=== PATIENT | female | born 1945 | race Caucasian/White ===

== ENCOUNTER → 2016-11-29 | Outpatient (CLI) | payer MEDICARE, BC ==
[~2016-11-29] MED LIST: CEFTIN500 MG PO; GLUCOPHAGE XR500 M1 PO; GLUCOPHAGE500 MG/TAB PO; LEVAQUIN 750MG750 M1 PO; LORTAB 5/500 501 TAB PO; NO HOME MEDICATIONS; NORCO 325 MG-51 TAB PO
== END ==
LOC: MC.RAD 11-24 09:40
DX: Z12.31 Encounter for screening mammogram for malignant neoplasm of breast (principal)

== ENCOUNTER → 2017-11-17 | Outpatient (CLI) | payer MEDICARE, BC | LOC: COL.RAD 08:42 | DX: S46.312A Strain of muscle, fascia and tendon of triceps, left arm, initial encounter (principal) ==

== ENCOUNTER 2017-11-27 13:51 | Outpatient (RCR) | payer MEDICARE, BC | END 2017-12-07 11:18 | disposition home or self-care (01) | LOC: WSPT 13:51 | DX: S46.002A Unspecified injury of muscle(s) and tendon(s) of the rotator cuff of left shoulder, initial encounter (principal) | CPT/HCPCS: G8984-GP; G8985-GP; G8986-GP ==

== ENCOUNTER → 2017-12-04 | Outpatient (CLI) | payer MEDICARE, BC | LOC: MC.RAD 08:50 | DX: Z12.31 Encounter for screening mammogram for malignant neoplasm of breast (principal) ==

== ENCOUNTER 2018-03-01 23:27 | Emergency (ER) | payer MEDICARE, BC ==
[~2018-03-01] VITALS: Ht 160 cm; Wt 86.4 kg
[2018-03-01 23:32] VITALS: BP 143/76; TEMP 97
[2018-03-02 01:26] VITALS: PULSE 82
[2018-03-02] MEDS ORDERED: DITROPAN 5MG TAB5 MG PO (01:28)
[2018-03-02] MEDS ORDERED: ERGOCALCIFER50000 IU PO (01:28)
[2018-03-02] MEDS ORDERED: REQUIP0.25 MG PO (01:28)
[2018-03-02] MEDS ORDERED: TRIMPEX100 MG PO (01:28)
[2018-03-02] MEDS ORDERED: HALCION0.25 MG PO (01:28)
[2018-03-02] MEDS ORDERED: PRAVACHOL10 MG PO (01:28)
[2018-03-02] MEDS ORDERED: CELEXA10 MG PO (01:29)
== END 2018-03-02 01:31 | disposition home or self-care (01) ==
LOC: COL.ER 23:27
DX: S09.90XA Unspecified injury of head, initial encounter (principal); S01.01XA Laceration without foreign body of scalp, initial encounter; W06.XXXA Fall from bed, initial encounter

== ENCOUNTER 2018-03-08 12:24 | Emergency (ER) | payer MEDICARE, BC ==
[~2018-03-08 12:24] MED LIST changes: +CELEXA10 MG PO; +DITROPAN 5MG TAB5 MG PO; +ERGOCALCIFER50000 IU PO; +HALCION0.25 MG PO; +PRAVACHOL10 MG PO; +REQUIP0.25 MG PO; +TRIMPEX100 MG PO
[2018-03-08 12:26] VITALS: BP 116/66; PULSE 95; TEMP 98.1
== END 2018-03-08 12:31 | disposition home or self-care (01) ==
LOC: COL.ER 12:24
DX: S01.01XD Laceration without foreign body of scalp, subsequent encounter (principal); X58.XXXD Exposure to other specified factors, subsequent encounter

== ENCOUNTER 2018-06-12 12:26 | Emergency (ER) | payer MEDICARE, BC ==
[~2018-06-12] VITALS: Ht 160 cm; Wt 86.4 kg
[2018-06-12 12:29] VITALS: BP 127/80; TEMP 99
[2018-06-12] MEDS ORDERED: GLUCOPHAGE XR500 M1 PO (12:40)
[2018-06-12 12:46] LABS: BASO % 0.4 % (0.0-2.0); EOS # 0.1 (0.0-0.7); EOS % 1.1 % (0-4.0); GRAN # 6.6 (1.4-6.5); GRAN % 67.6 % (42.2-75.2); HEMOGLOBIN 12.8 g/dl (12.5-16.0); LYMPH # 1.9 (1.2-3.4); LYMPH % 19.5 % (20.0-51.0); MEAN CELL VOLUME 94 fl (80.0-100.0); MEAN CORPUSCULAR HEMOGLOBIN 33 pg (27.0-31.0); MEAN CORPUSCULAR HGB CONC 35 g/dl (33.0-37.0); MEAN PLATELET VOLUME 8.7 fl (7.4-10.4); MONO # 1.1 (0.1-0.6); PLATELET COUNT 317 K/mm3 (130-400); RED BLOOD COUNT 3.88 M/mm3 (4.10-5.30); REDCELL DISTRIBUTION WIDTH-CV 12.9 % (11.5-14.5)
[2018-06-12 12:47] LABS: HEMATOCRIT 36.5 % (37.0-47.0)
[2018-06-12 13:00] LABS: BILIRUBIN,TOTAL 0.5 mg/dL (0.0-1.0); CALCIUM 8.9 mg/dL (8.4-10.2); CREATININE, serum 0.86 mg/dL (0.52-1.25); POTASSIUM 4.5 mmol/L (3.4-5.0); TOTAL PROTEIN 7.3 gm/dL (6.4-8.2)
[2018-06-12 13:16] LABS: COLLECTION METHOD CLEAN CATCH
[2018-06-12 13:29] LABS: MUCOUS Present /lpf; PH 6 (5-8); SQUAMOUS EPITHELIAL 0-2 /hpf; URINE APPEARANCE Hazy; URINE BACTERIA Many /hpf; URINE BILIRUBIN Negative (NEGATIVE); URINE BLOOD Negative (NEGATIVE); URINE COLOR Yellow; URINE GLUCOSE Negative (NEGATIVE); URINE KETONE Negative (NEGATIVE); URINE LEUKOCYTE ESTERASE 1+ (NEGATIVE); URINE NITRATE Negative (NEGATIVE); URINE PROTEIN(semi-quant) Negative (NEGATIVE); URINE UROBILINOGEN Negative (NEGATIVE)
[2018-06-12 13:40] VITALS: PULSE 82
[2018-06-13] MEDS ORDERED: CEFTIN500 MG PO (18:18)
== END 2018-06-12 13:49 | disposition home or self-care (01) ==
LOC: COL.ER 12:26
PROVIDERS: Family Medicine
DX: S70.02XA Contusion of left hip, initial encounter (principal); E11.9 Type 2 diabetes mellitus without complications; Z90.49 Acquired absence of other specified parts of digestive tract; Z79.84 Long term (current) use of oral hypoglycemic drugs; W18.39XA Other fall on same level, initial encounter

== ENCOUNTER → 2019-01-28 | Outpatient (CLI) | payer MEDICARE, BC | LOC: MC.RAD 12-17 10:30 | DX: Z12.31 Encounter for screening mammogram for malignant neoplasm of breast (principal) ==

== ENCOUNTER 2019-08-29 14:32 | Inpatient (IN) | payer MEDICARE, BC ==
[~2019-08-29] VITALS: Ht 160 cm; Wt 89.9 kg
[2019-10-16] VITALS (15 sets, daily range): BP systolic 11–122; BP diastolic 27–88; PULSE 63–93; TEMP 98.2–98.7
--- NOTE | 2019-10-16 06:31 | NUR ---
PATIENT UP TO ROOM 329 AT 0520. DRESSED IN CLEAN GOWN. 20 G IV STARTED TO R HAND. LR INFUSING AT 100 ML/HR. R KNEE MARKED AND SCRUBBED WITH CHLOREHEXIDINE. JEREMÍAS HOSE TO NON OPERATIVE EXTREMITY. GLASSES AND UPPER PARTIAL DENTURES REMOVED AND WITH PATIENTS SON. CONSENT SIGNED. PATIENT DOWN TO PREOP BY JENNIFER VIA BED.
--- NOTE | 2019-10-16 09:40 | NUR ---
PATIENT BACK IN ROOM 329 POST OP RIGHT KNEE. RLE ELEVATED WITH PILLOWS. RTK DRESSING IS CD&I WITH ACEWRAP DRESSING CD&I AND CRYOCUFF INPLACE. POSITIVE +1 PEDAL PULSES TO BLE. TEDS & SCD'S TO BLE. NO LOPEZ. PATIENT DENIES NEED TO VOID AT THIS TIME. IV FLUIDS INFUSING VIA PUMP INTO RIGHT HAND IV. NO C/O N/V. LIQUIDS AT BEDSIDE. BS 116. HEAD TO TOE ASSESSMENT WNL. VSS. NO C/O PAIN. PATIENT IS NOT MOVING BLE YET AFTER SPINAL. NOTED FEELING/SENSATION AT T10. NO OTHER NEEDSA THIS TIME. ORIENTED TO ROOM. CALL LIGHT IN REACH. SON AT BEDSIDE.
--- NOTE | 2019-10-16 11:41 | NUR ---
RUTH met with the patient to discuss discharge plan. The patient lives alone in [place]. She states that one of her sons', Nathan (ph#[phone]), also lives here in town. She reports independence with ADLs and has a cane and walker. The patient's PCP is Dr. Megan Pressley and she receives her medications at [facility]. She reports no difficulties obtaining her meds. The patient does not have advanced directives in EMR, but states that she does have them completed. She states that her DPOA-HC is her son's Jayson. The patient reports that due to living alone, she is hoping to go to post-acute rehab upon discharge. RUTH presented and explained the Patient Choice Form to the patient and provided her with Medicare.gov's list of nursing homes in the [place] area. The patient chose 1) [facility] 2) [facility]. Patient Choice Form signed by the patient and she was provided a copy. RUTH contacted and faxed a referral to both facilities. SW awaiting their screens.
--- NOTE | 2019-10-16 12:45 | NUR ---
PATIENT C/O PAIN IN RLE RATED AT 4-5. PATIENT IS NOW MOVING BLE. GAVE PRN ROXICODONE, TWO TABS WITH LUNCH.
--- NOTE | 2019-10-16 14:32 | NUR ---
Silvia, at [facility], reports that they are able to accept the patient for a skilled stay. Timbo, at [facility], reports that they should be able to accept; but will need more progress notes, once available. SW to update the patient and will continue to follow.
--- NOTE | 2019-10-16 16:20 | NUR ---
PATIENT FOUND ON COMMODE DURING ROUTINE VITALS, NOT MAKING ANY SENSE. PATIENT IS PALE AND QUICKLY VEGALS OUT. PATIENT IS NOT RESPONDING TO HER NAME AND SLUMPED FORWARD ON COMMODE. NURSE CAUGHT PATIENT AND IS SUPPORTING WEIGHT. CALLED CHARGE FOR ASSISTANCE, AND THEN CAT CALL.
--- NOTE | 2019-10-16 16:21 | NUR ---
PATIENT PLACED IN [place], O2 AT 2L APPLIES PER NC. IV BOLUS INFUSING.
--- NOTE | 2019-10-16 16:23 | NUR ---
CAT TEAM AT BEDSIDE.
--- NOTE | 2019-10-16 16:30 | NUR ---
PATIENT RESTING UP IN BED. REPORTS SHE FEELS FINE. PATIENT ALSO STATED HE HAS ISSUES WITH LOW B/P AT TIMES. FLUID BOLUS GIVEN PER HOSPITALIST. SEE ORDERS.
--- NOTE | 2019-10-16 16:32 | NUR ---
CALLED YARIEL LEIVA AND UPDATED ON PT STATUS. NEW ORDERS RECIEVED SEE COMPUTER.
--- NOTE | 2019-10-16 16:40 | NUR ---
RT AT BEDSIDE TO OBTAIN EKG
[2019-10-16 18:14] LABS: BASO # 0.1 (0.0-0.2); BASO % 0.4 % (0.0-2.0); EOS # 0.2 (0.0-0.7); EOS % 1.2 % (0-4.0); GRAN # 11.2 (1.4-6.5); GRAN % 78.4 % (42.2-75.2); HEMOGLOBIN 10.9 g/dl (12.5-16.0); LYMPH # 1.5 (1.2-3.4); LYMPH % 10.2 % (20.0-51.0); MEAN CELL VOLUME 95 fl (80.0-100.0); MEAN CORPUSCULAR HEMOGLOBIN 33 pg (27.0-31.0); MEAN CORPUSCULAR HGB CONC 34 g/dl (33.0-37.0); MEAN PLATELET VOLUME 9.5 fl (7.4-10.4); MONO # 1.3 (0.1-0.6); MONO % 8.9 % (1.7-9.3); PLATELET COUNT 276 K/mm3 (130-400); RED BLOOD COUNT 3.35 M/mm3 (4.10-5.30); REDCELL DISTRIBUTION WIDTH-CV 13.2 % (11.5-14.5)
[2019-10-16 18:24] LABS: ALANINE AMINOTRANSFERASE 22 U/L (9-52); ALBUMIN 3.2 gm/dL (3.5-5.0); ALKALINE PHOSPHATASE 54 U/L (50-136); ANION GAP 6 mmol/L (7-16); AST,SGOT 27 U/L (15-37); BLOOD UREA NITROGEN 12 mg/dL (7-17); CALCIUM 7.5 mg/dL (8.4-10.2); CARBON DIOXIDE 23 mmol/L (22-30); CHLORIDE 100 mmol/L (98-107); CREATININE, serum 0.75 (0.52-1.25); GLUCOSE 116 mg/dL (74-106); POTASSIUM 4.6 mmol/L (3.4-5.0); SODIUM 130 mmol/L (137-145)
[2019-10-16 18:27] LABS: HEMATOCRIT 31.9 % (37.0-47.0)
[2019-10-16 18:38] LABS: TROPONIN-I < 0.012 ng/mL (0.000-0.035)
[2019-10-16 18:45] LABS: BILIRUBIN UNCONJUGATED 0.3 mg/dL (0.0-1.1); BILIRUBIN,TOTAL 0.3 mg/dL (0.0-1.0)
--- NOTE | 2019-10-16 20:00 | NUR ---
Pt. laiying in bed with family at bedside. Pt. is A&OX3, assessment complete. IV to rt. hand patent, IV fluids infusing per orders. Pt. reports pain at a 6 on pain scale, gave pain meds per orders. Pt. also reports feeling the need to urinate without success. Will bladder scan pt. Pt. denies further needs, call light within reach.
--- NOTE | 2019-10-16 21:00 | NUR ---
Pt. bladder scanned at this time. Pt. has only 70 mls in bladder. Pt. reports that she has and some incontinent dribbling. Pt. refused having brief changed at this time. Pt. denies further needs.
[2019-10-17] VITALS (8 sets, daily range): BP systolic 81–144; BP diastolic 49–85; PULSE 62–103; TEMP 97.7–99.2
--- NOTE | 2019-10-17 04:50 | NUR ---
Pt. assisted to [facility] by ANAMARIA Mcgill. Pt. began to feel faint and passed out. RN called out for assisted. This nurse, ANAMARIA Hensley and TIM Lo entered room to find pt. breathing but unresponsived. Pt. sternal chest rubbed and aroused but remained grougy. Vitals taken and were stable. Pt. then awoke and became alert and oriented to the situation. Pt. then assisted back to bed with gait belt, walker and 4 assist. Pt. was able to transfer without passing out at that time. Pt. repositioned for comfort. Pt. denies needs, will monitor.
--- NOTE | 2019-10-17 06:50 | NUR ---
awake sitting up in bed ready for breakfast, bedside shift report received from ANAMARIA Aquino
--- NOTE | 2019-10-17 08:00 | NUR ---
entered room and she is asking to get up to bedside commode, orthostatic VS completed, she started to become dizzy while standing and continued to say she didn't feel good, after contiuing to not feel well and BP 81/49 sat back on bed and laid back with head flat, after lying for a few minutes she started to feel better, was incontinent of urine and care provided and then placed on bed vegas to try and have bowel movement
[2019-10-17 08:03] LABS: BASO # 0.1 (0.0-0.2); BASO % 0.3 % (0.0-2.0); EOS % 0.1 % (0-4.0); GRAN # 16.1 (1.4-6.5); GRAN % 88.3 % (42.2-75.2); HEMOGLOBIN 11.8 g/dl (12.5-16.0); LYMPH % 5.6 % (20.0-51.0); MEAN CELL VOLUME 96 fl (80.0-100.0); MEAN CORPUSCULAR HEMOGLOBIN 32 pg (27.0-31.0); MEAN CORPUSCULAR HGB CONC 34 g/dl (33.0-37.0); MEAN PLATELET VOLUME 9.4 fl (7.4-10.4); MONO % 5.2 % (1.7-9.3); PLATELET COUNT 292 K/mm3 (130-400); RED BLOOD COUNT 3.64 M/mm3 (4.10-5.30); REDCELL DISTRIBUTION WIDTH-CV 13.1 % (11.5-14.5)
[2019-10-17 08:13] LABS: CALCIUM 7.9 mg/dL (8.4-10.2); CREATININE, serum 0.72 (0.52-1.25); POTASSIUM 4.9 mmol/L (3.4-5.0)
--- NOTE | 2019-10-17 08:40 | NUR ---
was unable to have bowel movement but passing flatus, full assessment completed, see interventions for further info, denies needs at this time
--- NOTE | 2019-10-17 08:44 | NUR ---
Initial visit; Patient thanked A&P Technician for stopping though declined spiritual care at this time.
--- NOTE | 2019-10-17 09:00 | NUR ---
Dr Alvarez informed of patients orthostatic VS
--- NOTE | 2019-10-17 09:15 | NUR ---
physical therapy was in and worked with bernardo
--- NOTE | 2019-10-17 09:40 | NUR ---
occupational therapy in to visit with her about adaptive equipment
--- NOTE | 2019-10-17 10:18 | NUR ---
resting in bed, just states she feels very sleepy, encouraged to rest
--- NOTE | 2019-10-17 11:50 | NUR ---
resting in bed having lunch, is asking to try and get up, informed her we will do that with therapy in about an hour, verbalizes understanding
--- NOTE | 2019-10-17 13:07 | NUR ---
physical therapy in to work with patient, ambulating out to porter with therapy and denies dizziness at this time
--- NOTE | 2019-10-17 13:13 | NUR ---
SW contacted and faxed updates to [facility] [place] [facility]. SW to continue to follow.
--- NOTE | 2019-10-17 13:40 | NUR ---
ambulated back to room and into bathroom and voided qs, then out of bathroom and into recliner to rest
--- NOTE | 2019-10-17 14:30 | NUR ---
is requesting to go back to bed, explained to her she only has been up a little while this afternoon and it would be best to stay up for a while, verbalizes understanding
--- NOTE | 2019-10-17 15:20 | NUR ---
assisted up to bathroom and then back to bed, tolerated being up wihtout dizziness
--- NOTE | 2019-10-17 16:15 | NUR ---
resting in bed talking on cell phone
--- NOTE | 2019-10-17 16:49 | NUR ---
now c/o pain and medicated with tramadol 50mg, given crackers to have with med
--- NOTE | 2019-10-17 17:30 | NUR ---
sitting up in bed eating supper
[2019-10-17] MEDS ORDERED: ASPI325T6 PO (21:04)
[2019-10-17] MEDS ORDERED: ROXICODONE 55 MG/TAB PO (21:05)
[2019-10-17] MEDS ORDERED: TYLENOL 500MG500 MG PO (21:05)
--- NOTE | 2019-10-18 03:13 | NUR ---
Patient has rested well throughout the night. Up to commode several times this shift with one assist from staff. IVF continue. PRN Tramadol given for pain. Effective. Patient denies any further needs. Will continue to monitor.
[2019-10-18 06:14] VITALS: BP 130/52; PULSE 87; TEMP 98.2
[2019-10-18 07:09] LABS: BASO % 0.3 % (0.0-2.0); EOS # 0.5 (0.0-0.7); EOS % 3.9 % (0-4.0); GRAN # 10.4 (1.4-6.5); GRAN % 76.4 % (42.2-75.2); HEMOGLOBIN 11.1 g/dl (12.5-16.0); LYMPH # 1.3 (1.2-3.4); LYMPH % 9.8 % (20.0-51.0); MEAN CELL VOLUME 97 fl (80.0-100.0); MEAN CORPUSCULAR HEMOGLOBIN 33 pg (27.0-31.0); MEAN CORPUSCULAR HGB CONC 34 g/dl (33.0-37.0); MEAN PLATELET VOLUME 9.7 fl (7.4-10.4); MONO # 1.2 (0.1-0.6); PLATELET COUNT 250 K/mm3 (130-400); RED BLOOD COUNT 3.41 M/mm3 (4.10-5.30); REDCELL DISTRIBUTION WIDTH-CV 13.5 % (11.5-14.5)
[2019-10-18 07:10] LABS: HEMATOCRIT 32.9 % (37.0-47.0)
[2019-10-18 07:16] LABS: CALCIUM 7.8 mg/dL (8.4-10.2); CREATININE, serum 0.61 (0.52-1.25); POTASSIUM 4.3 mmol/L (3.4-5.0)
--- NOTE | 2019-10-18 07:24 | NUR ---
REPORT FROM MARY CONRAD.
[2019-10-18 07:56] VITALS: BP 130/48; PULSE 104; TEMP 98
--- NOTE | 2019-10-18 08:58 | NUR ---
PT SITTING UP IN BED EATING BREAKFAST. DENIES PAIN. OUT TO LARSEN WITH THEARPY. AMBULATING WITH STEADY GAIT.
[2019-10-18 09:15] VITALS: BP 130/48
--- NOTE | 2019-10-18 09:46 | NUR ---
DRESSING CHANGE COMPLETE. INCISION WELL APPROXIMATED AND CDI. AQUACEL PLACED OVER INCISION. PT TOLERATED WELL.
[2019-10-18 11:43] VITALS: BP 117/59; PULSE 88; TEMP 97.9
--- NOTE | 2019-10-18 11:47 | NUR ---
The patient is to tentatively discharge tomorrow, 10/19. RUTH met with the patient to review discharge plan. The patient is in agreeance with a discharge tomorrow and to go to her first preference, [facility], for a skilled stay. RUTH presented and explained the IM form to the patient. The patient verbalized understanding, signed, and she was provided a copy. RUTH notified Silvia at [facility] and faxed over updates. RUTH to notify Timbo at [facility] and will continue to follow.
[2019-10-18 15:23] VITALS: BP 124/71; PULSE 97; TEMP 98.8
--- NOTE | 2019-10-18 18:48 | NUR ---
REPORT TO EDUARDO CONRAD.
[2019-10-18 20:27] VITALS: BP 119/54; PULSE 93; TEMP 98.4
[2019-10-19 00:48] VITALS: BP 125/60; PULSE 87; TEMP 97.4
--- NOTE | 2019-10-19 03:53 | NUR ---
Patient has rested well throughout the night. PRN pain medication given as needed. Patient states pain is well controlled. Patient able to get out of bed and transfer to the bathroom with stand-by assist. Utilizes walker. Does hygiene independently. Patient ambulates slow and steady. Denies any dizziness. Denies any further needs. Will continue to monitor.
[2019-10-19 04:17] VITALS: BP 104/65; PULSE 83; TEMP 97.3
[2019-10-19 08:26] VITALS: BP 116/58; PULSE 103; TEMP 99.2
[2019-10-19 10:24] VITALS: BP 116/58; PULSE 103; TEMP 99.2
--- NOTE | 2019-10-19 11:45 | NUR ---
No complaints. Ambulatory with walker and standby assist. Dismissed to [facility] per w/c brooks.
--- NOTE | 2019-10-19 13:15 | NUR ---
SW coordinated discharge with Patients nurse. SW faxed discharge documents to [facility].
== END 2019-10-19 11:45 | DRG 554 ==
LOC: JCC 10-16 05:25
PROVIDERS: Hospitalist; Physician Assistant; ADMIT Orthopaedic Surgery
DX: M17.11 Unilateral primary osteoarthritis, right knee (principal); E87.1 Hypo-osmolality and hyponatremia; I95.1 Orthostatic hypotension; E78.5 Hyperlipidemia, unspecified; D72.829 Elevated white blood cell count, unspecified; F41.9 Anxiety disorder, unspecified; E11.9 Type 2 diabetes mellitus without complications
CPT/HCPCS: 99222; 99231-AI; 99232-AI; A9284; C1713; C1776; J0690; J2250; J2370; J2704; J3370; J7030; J7120

== ENCOUNTER 2019-10-22 08:41 | Inpatient (IN) | payer MEDICARE, BC ==
[~2019-10-22] VITALS: Ht 160 cm; Wt 95.3 kg
[2019-10-22] VITALS (326 sets, daily range): BP systolic 100–147; BP diastolic 47–76; PULSE 95–116; TEMP 97.9–98.6; O2SAT 54–100
[~2019-10-22 08:41] MED LIST changes: +ASPI325T6 PO; +ROXICODONE 55 MG/TAB PO; +TYLENOL 500MG500 MG PO
[2019-10-22 09:21] LABS: MEAN CELL VOLUME 97 fl (80.0-100.0); MEAN CORPUSCULAR HGB CONC 33 g/dl (33.0-37.0); MEAN PLATELET VOLUME 10.1 fl (7.4-10.4); PLATELET COUNT 198 K/mm3 (130-400); RED BLOOD COUNT 2.04 M/mm3 (4.10-5.30)
[2019-10-22 09:25] LABS: HEMATOCRIT 19.8 % (37.0-47.0); HEMOGLOBIN 6.5 g/dl (12.5-16.0); MEAN CORPUSCULAR HEMOGLOBIN 32 pg (27.0-31.0)
[2019-10-22 09:32] LABS: ALANINE AMINOTRANSFERASE 21 U/L (9-52); ALBUMIN 2.4 gm/dL (3.5-5.0); ALKALINE PHOSPHATASE 48 U/L (50-136); ANION GAP 6 mmol/L (7-16); AST,SGOT 24 U/L (15-37); BILIRUBIN,TOTAL 0.3 mg/dL (0.0-1.0); BLOOD UREA NITROGEN 22 mg/dL (7-17); CALCIUM 7.5 mg/dL (8.4-10.2); CARBON DIOXIDE 25 mmol/L (22-30); CHLORIDE 102 mmol/L (98-107); GLUCOSE 142 mg/dL (74-106); POTASSIUM 5.4 mmol/L (3.4-5.0); SODIUM 132 mmol/L (137-145); TOTAL PROTEIN 5.1 gm/dL (6.4-8.2)
--- NOTE | 2019-10-22 09:33 | NUR ---
Initial visit; Patient requested visit and Spiritual Care upon arrival. Analytics Leader offered encouragement and prayer. Analytics Leader will follow up.
[2019-10-22 09:51] LABS: TROPONIN-I < 0.012 ng/mL (0.000-0.035)
[2019-10-22 10:06] LABS: BAND 9 % (0-10); BASOPHIL 1 % (0-2); EOSINOPHIL 1 % (0-4); LYMPHOCYTE 9 % (20.0-51.0); MYELOCYTE 1 % (0-0); NEUTROPHILS 74 % (42.0-75.2); PLATELET ESTIMATE NORMAL (NORMAL)
[2019-10-22 10:07] LABS: HYPOCHROMIA 1+
[2019-10-22 10:08] LABS: POLYCHROMASIA 1+; SCHISTOCYTES 1+; TARGET CELLS 1+
[2019-10-22 10:10] LABS: ANISOCYTOSIS 1+
[2019-10-22 10:20] LABS: INR 1.1 (0.8-3.0); PROTHROMBIN TIME 13.4 SECONDS (9.7-12.8)
[2019-10-22 10:23] LABS: PARTIAL THROMBOPLASTIN TIME 25.2 SECONDS (26.0-37.0)
--- NOTE | 2019-10-22 11:10 | NUR ---
PT ARRIVED FROM ED TO ICU 8 FOR GI BLEED. PT TRANSFERED TO BED. ICU MONITORS APPLIED. PT IS AXOX4. VSS. PT SHOWING SR ON TELE. PT TO RECEIVED 2 UNITS PRBC AND HAVE UPPER EGD. PT CONSENTED FOR EGD AND BLOOD. PT ORIENTED TO ROOM AND FLOOR. SON BEDSIDE. DR. BROWN NOTIFIED OF ARRIVAL. WILL CONTINUE TO MONITOR.
[2019-10-22] MEDS ORDERED: DULCOLAX S10 MG/SUPP RC (12:28)
[2019-10-22] MEDS ORDERED: DEBROX OT (12:29)
[2019-10-22] MEDS ORDERED: IMODIUM A-D2 MG PO (12:30)
[2019-10-22] MEDS ORDERED: GOOD NEIGH1200 MG/15 PO (12:31)
[2019-10-22] MEDS ORDERED: NAPROSYN500 MG PO (12:32)
[2019-10-22] MEDS ORDERED: ULTRAM 50MG TAB50 MG PO (12:33)
[2019-10-22] MEDS ORDERED: TYLENOL SU650 MG/SUP RC (12:35)
--- NOTE | 2019-10-22 15:59 | NUR ---
Refrigerator Assembler met with patient and patient's son Nathan (ph#[phone]) to discuss discharge planning. Patient had knee surgery last week and was discharged on Monday (10/19) to [facility]. Prior to stay at [facility], patient was living alone in her apartment in [place]. Patient owns a walker and cane although reports she doesn't use them much around the apartment. Patient states she uses her cane when walking in the community. Patient sees Dr. Megan Pressley for primary care and obtains medications from [facility]. Patient has Advance Directives located in chart. Patient states she plans to return to [facility] upon discharge for continued therapy. RUTH presented patient choice form and patient selected [facility] then provided signature. RUTH placed form in chart. RUTH faxed referral and contacted Silvia at [facility]. Patient expressed that she would like to speak with Tick Sewer. RUTH contacted Chaplain Payne who met with patient. SW to continue to follow.
[2019-10-22 19:32] LABS: HEMATOCRIT 25.8 % (37.0-47.0); HEMOGLOBIN 8.9 g/dl (12.5-16.0)
--- NOTE | 2019-10-22 21:00 | NUR ---
Patient assessed, vitals stable, medications given. Will continue to assess and monitor.
[2019-10-23] VITALS (336 sets, daily range): BP systolic 111–144; BP diastolic 54–79; PULSE 91–99; TEMP 97.9–98.8; O2SAT 63–100
--- NOTE | 2019-10-23 05:32 | NUR ---
Report given to ANAMARIA Dan.
[2019-10-23 06:16] LABS: MEAN CELL VOLUME 93 fl (80.0-100.0); MEAN CORPUSCULAR HGB CONC 33 g/dl (33.0-37.0); MEAN PLATELET VOLUME 9.7 fl (7.4-10.4); PLATELET COUNT 242 K/mm3 (130-400); RED BLOOD COUNT 2.59 M/mm3 (4.10-5.30); REDCELL DISTRIBUTION WIDTH-CV 14.5 % (11.5-14.5)
[2019-10-23 06:20] LABS: CALCIUM 8.1 mg/dL (8.4-10.2); CREATININE, serum 0.66 (0.52-1.25); POTASSIUM 4.7 mmol/L (3.4-5.0)
[2019-10-23 06:21] LABS: MEAN CORPUSCULAR HEMOGLOBIN 31 pg (27.0-31.0)
--- NOTE | 2019-10-23 07:50 | NUR ---
Telephone report recieved from Cherelle CONRAD
--- NOTE | 2019-10-23 08:15 | NUR ---
Pt ambulated with heavy 2-assist to commode to void. Pt tolerated bearing weight on right knee for 1-2 minutes before requiring to be seated d/t pain "it just gave out on me". After commode, pt moved to recliner, legs reclined and pillow placed under right knee for comfort. No complaints from pt at this time
[2019-10-23 08:31] LABS: PATHOLOGY DIFF REVIEW OK
[2019-10-23 09:08] LABS: BAND 2 % (0-10); EOSINOPHIL 1 % (0-4); LYMPHOCYTE 13 % (20.0-51.0); METAMYELOCYTE 3 % (0-0); MYELOCYTE 3 % (0-0); NEUTROPHILS 70 % (42.0-75.2); NUCLEATED RED BLOOD CELL 2 (0-6); PLATELET ESTIMATE NORMAL (NORMAL); TARGET CELLS 1+
[2019-10-23] MEDS ORDERED: ROXICODONE 55 MG/TAB PO (09:22)
--- NOTE | 2019-10-23 09:58 | NUR ---
SEE MERGE DOCUMENTATION FOR MEDICATION ADMINISTRATION TIMES AND INTRA/POST PROCEDURE SEDATION ASSESSMENTS.
--- NOTE | 2019-10-23 11:03 | NUR ---
Interdisciplinary rounds commencing at this time
--- NOTE | 2019-10-23 12:14 | NUR ---
0700: Pt off unit at Endo procedure 0756: Pt back in room from procedure, AAOx3, report recieved from MD Wilder. Pt's son at bedside. 0931: Pt off unit to IVC Filter Placement with CVL team. 1028: Telephone report received from CVL BriceRN 1050: Pt arrived back to unit, AAOx3, VSS, son at bedside, external catheter secured with appropriate suction mmHg, suctioning clear yellow urine. No complaints at this time.
--- NOTE | 2019-10-23 16:00 | NUR ---
Ice pack applied to right knee
--- NOTE | 2019-10-23 16:54 | NUR ---
Teletypewriter Installer faxed updates to [facility]. MIRANDA to continue to follow.
[2019-10-23 20:16] LABS: HEMATOCRIT 26.3 % (37.0-47.0); HEMOGLOBIN 8.8 g/dl (12.5-16.0)
[2019-10-24] VITALS (468 sets, daily range): BP systolic 112–135; BP diastolic 48–84; PULSE 88–107; TEMP 97.8–99.5; O2SAT 82–100
[2019-10-24 06:38] LABS: MEAN CELL VOLUME 95 fl (80.0-100.0); MEAN CORPUSCULAR HGB CONC 33 g/dl (33.0-37.0); MEAN PLATELET VOLUME 9.4 fl (7.4-10.4); PLATELET COUNT 276 K/mm3 (130-400); RED BLOOD COUNT 2.64 M/mm3 (4.10-5.30); REDCELL DISTRIBUTION WIDTH-CV 13.9 % (11.5-14.5)
[2019-10-24 06:40] LABS: HEMOGLOBIN 8.3 g/dl (12.5-16.0); MEAN CORPUSCULAR HEMOGLOBIN 31 pg (27.0-31.0)
[2019-10-24 06:48] LABS: CREATININE, serum 0.69 (0.52-1.25); POTASSIUM 4.3 mmol/L (3.4-5.0)
[2019-10-24 07:21] LABS: BAND 14 % (0-10); EOSINOPHIL 2 % (0-4); LYMPHOCYTE 20 % (20.0-51.0); METAMYELOCYTE 1 % (0-0); NEUTROPHILS 51 % (42.0-75.2); NUCLEATED RED BLOOD CELL 2 (0-6)
[2019-10-24 07:22] LABS: PLATELET ESTIMATE NORMAL (NORMAL)
--- NOTE | 2019-10-24 07:30 | NUR ---
Report received from Dana Gaona. Pt resting in chair. No complaints at this time.
--- NOTE | 2019-10-24 08:00 | NUR ---
Assessment completed. Pt states recliner is more comfortable than the bed. A/Ox3. VSS. States pain in right leg 03/15. Requested tylenol for pain medication. Legs elevated at this time. Ice pack applied to right knee for comfort. right leg swollen, brusing around knee and right calf. right knee dressing C/D/I. Right femoral dressing, gauze/tegderm, C/D/I. Discussed plan of care with possible advance in diet and right knee dressing change. Pt verbalized understanding. CAll light in reach.
--- NOTE | 2019-10-24 10:20 | NUR ---
Pt request to move back to bed. Pt transferred to bed x2 assist with gait belt. pt has steady gait. Pt incontinent of urine during transfer. Pericare provided once back in bed. New external catheter placed and suction on. Pt states she prefers external catheter rather than the briefs. right leg elevated on pillow. Call light in reach.
--- NOTE | 2019-10-24 11:00 | NUR ---
Right knee dressing changed per Dr Jefferson orders. Right knee incision well approximated, no redness or drainage. Bruising around knee and right calf area. 4x4 and tegaderm over incision. Pt tolerated well. Remains in bed. Call light in reach.
--- NOTE | 2019-10-24 14:45 | NUR ---
Phone report given to pascual grab jack worker.
--- NOTE | 2019-10-24 15:20 | NUR ---
Pt transferred to room 327 via wheelchair. Ale, ground support agent, in room and updated on pt status. Pt transferred to bed x2 assist with gait belt. Pt slightly unsteady. Tolerated transfer well. Pt repositioned in bed, call light in reach. Pt's son here to visit pt.
--- NOTE | 2019-10-24 15:30 | NUR ---
Patient to room 327 by wheelchair from [facility]. Patient A&Ox4. Denies pain and discomfort. Oriented patient to room and call light. Patient assisted to bed 2x assist. IV CDI. No further needs expressed from patient. Call light within reach
--- NOTE | 2019-10-24 17:56 | NUR ---
Patient sitting up in bed. A&Ox3, denies pain and discomfort. VSS. IV CDI. RT femoral site CDI. RT knee gauze and tegaderm CDI, swelling to RLE. No further needs expressed from patient. Call light within reach
--- NOTE | 2019-10-25 01:49 | NUR ---
Patient is alert and oriented. No reports of bloody stools this shift. Patient incision sites are covered with surgical dressing and are both clean, dry and intact. Patient has stated she has pain in her right knee. She states she is concerned about bruising to the inner aspect of her right ankle. Patient has required one does of PRN oxycodone this shift.
[2019-10-25 04:00] VITALS: BP 129/50; PULSE 89; TEMP 97.8
[2019-10-25 07:47] LABS: MEAN CELL VOLUME 96 fl (80.0-100.0); MEAN CORPUSCULAR HGB CONC 33 g/dl (33.0-37.0); MEAN PLATELET VOLUME 9.5 fl (7.4-10.4); PLATELET COUNT 339 K/mm3 (130-400); RED BLOOD COUNT 2.78 M/mm3 (4.10-5.30); REDCELL DISTRIBUTION WIDTH-CV 13.9 % (11.5-14.5)
[2019-10-25 07:50] LABS: HEMATOCRIT 26.7 % (37.0-47.0); HEMOGLOBIN 8.8 g/dl (12.5-16.0); MEAN CORPUSCULAR HEMOGLOBIN 32 pg (27.0-31.0)
[2019-10-25 07:51] LABS: CALCIUM 8.4 mg/dL (8.4-10.2); CREATININE, serum 0.61 (0.52-1.25); POTASSIUM 3.8 mmol/L (3.4-5.0)
[2019-10-25 08:00] VITALS: BP 112/56; PULSE 105; TEMP 97.3
[2019-10-25] MEDS ORDERED: REQUIP 0.5MG0.5 MG PO (09:08)
[2019-10-25] MEDS ORDERED: CARAFATE 1GM1 G PO (09:09)
[2019-10-25] MEDS ORDERED: REQUIP0.25 MG PO (09:09)
[2019-10-25] MEDS ORDERED: PROTONIX 40MG T40 MG PO (09:10)
[2019-10-25] MEDS ORDERED: TYLENOL 325MG325 MG PO (09:10)
[2019-10-25 09:24] LABS: BAND 6 % (0-10); EOSINOPHIL 9 % (0-4); LYMPHOCYTE 14 % (20.0-51.0); METAMYELOCYTE 1 % (0-0); MYELOCYTE 2 % (0-0); NEUTROPHILS 53 % (42.0-75.2)
[2019-10-25 09:25] LABS: PLATELET ESTIMATE NORMAL (NORMAL)
[2019-10-25 09:26] LABS: POLYCHROMASIA 1+; TARGET CELLS 1+
[2019-10-25] MEDS ORDERED: ROXICODONE 55 MG/TAB PO (09:26)
--- NOTE | 2019-10-25 10:13 | NUR ---
PT UP AND OUT TO [facility] WITH THERAPY. OT ASSISTED WITH DAILY HYGIENE. PT PLANNING ON DC TO [facility] LATER TODAY. DRESSING TO RIGHT KNEE CDI WITH GAUZE OVER INCISION.
--- NOTE | 2019-10-25 10:57 | NUR ---
RUTH faxed updates to Silvia at [facility]. Silvia reports that they are able to accept the patient back. The patient is to discharge today, 10/25, back to [facility] for a skilled stay. Transportation was scheduled for 1300, via [facility]. RUTH informed the patient and his RN. They were both in agreeance to the time. RUTH also presented and explained the IM form to the patient. The patient verbalized understanding, signed, and she was provided a copy. No additional needs at this time.
[2019-10-25 11:44] VITALS: BP 124/56; PULSE 92; TEMP 98.8
--- NOTE | 2019-10-25 13:19 | NUR ---
REPORT TO DENNIS TURNER.
--- NOTE | 2019-10-25 13:28 | NUR ---
PT LEFT WITH [facility].
== END 2019-10-25 13:29 | DRG 356 ==
LOC: COL.ER 08:41 → IMCU 10:21 → ICU 10:21 → IMCU 10-23 07:30 → JCC 10-24 15:36
PROVIDERS: Internal Medicine Gastroenterology; Physician Assistant; ADMIT Hospitalist
PROC: 0DJ08ZZ Inspection of Upper Intestinal Tract, Via Natural or Artificial Opening Endoscopic (ICD-10-PCS; 2019-10-22)
PROC: 0W3P8ZZ Control Bleeding in Gastrointestinal Tract, Via Natural or Artificial Opening Endoscopic (ICD-10-PCS; 2019-10-23)
PROC: 0DB68ZX Excision of Stomach, Via Natural or Artificial Opening Endoscopic, Diagnostic (ICD-10-PCS; 2019-10-23)
PROC: 06H03DZ Insertion of Intraluminal Device into Inferior Vena Cava, Percutaneous Approach (ICD-10-PCS; principal; 2019-10-23 07:00)
DX: K25.0 Acute gastric ulcer with hemorrhage (principal); I26.99 Other pulmonary embolism without acute cor pulmonale; I82.412 Acute embolism and thrombosis of left femoral vein; I95.1 Orthostatic hypotension; Z96.651 Presence of right artificial knee joint; E78.5 Hyperlipidemia, unspecified; F41.9 Anxiety disorder, unspecified; E11.9 Type 2 diabetes mellitus without complications; G25.81 Restless legs syndrome; K44.9 Diaphragmatic hernia without obstruction or gangrene; D50.0 Iron deficiency anemia secondary to blood loss (chronic); E87.5 Hyperkalemia; M19.90 Unspecified osteoarthritis, unspecified site; Z90.710 Acquired absence of both cervix and uterus; Z96.611 Presence of right artificial shoulder joint; Z90.49 Acquired absence of other specified parts of digestive tract; Z98.51 Tubal ligation status; Z87.01 Personal history of pneumonia (recurrent); Z79.82 Long term (current) use of aspirin; Z79.891 Long term (current) use of opiate analgesic; Z79.84 Long term (current) use of oral hypoglycemic drugs
CPT/HCPCS: 99222-AI; 99232-AI; 99233-AI; 99239; C1880; C1894; C9113; J1644; J2250; J2704; J3010; J7030; P9016; Q9967

== ENCOUNTER → 2020-01-27 | Outpatient (CLI) | payer MEDICARE, BC ==
[~2020-01-27] MED LIST changes: +CARAFATE 1GM1 G PO; +DEBROX OT; +DULCOLAX S10 MG/SUPP RC; +GOOD NEIGH1200 MG/15 PO; +IMODIUM A-D2 MG PO; +NAPROSYN500 MG PO; +PROTONIX 40MG T40 MG PO; +REQUIP 0.5MG0.5 MG PO; +TYLENOL 325MG325 MG PO; +TYLENOL SU650 MG/SUP RC; +ULTRAM 50MG TAB50 MG PO
== END ==
LOC: COL.RAD 10:30
DX: I82.4Z2 Acute embolism and thrombosis of unspecified deep veins of left distal lower extremity (principal); Z95.828 Presence of other vascular implants and grafts

== ENCOUNTER → 2020-04-17 | Outpatient (CLI) | payer MEDICARE, BC | LOC: MC.RAD 11:09 | DX: Z12.31 Encounter for screening mammogram for malignant neoplasm of breast (principal) ==

== ENCOUNTER 2020-05-15 08:57 | Outpatient (CLI) | payer MEDICARE, BC ==
[~2020-05-15] VITALS: Ht 160 cm; Wt 86.0 kg
[2020-05-15] MEDS ORDERED: REQUIP 1MG T1 MG/TAB PO (10:15)
[2020-05-15] MEDS ORDERED: DESYREL 100MG100 MG PO (10:16)
[2020-05-15] MEDS ORDERED: ONE-A-DAY ESSE1 EACH PO (10:16)
[2020-05-15] MEDS ORDERED: VITAMIN C500 MG PO (10:17)
[2020-05-15] MEDS ORDERED: VITAMIN D 50,1.25 MG PO (10:18)
[2020-05-15 11:42] VITALS: BP 134/66; PULSE 66
--- NOTE | 2020-05-15 11:43 | NUR ---
SEE MERGE DOCUMENTAITON FOR MEDICATION ADMINISTRATION TIMES AND INTRA/POST PROCEDURE SEDATION ASSESSMENTS.
[2020-05-15 14:00] VITALS: BP 97/62; PULSE 87
[2020-05-15 14:15] VITALS: BP 103/73; PULSE 80
[2020-05-15 14:34] VITALS: TEMP 98
[2020-05-15 15:00] VITALS: BP 111/67; PULSE 77
--- NOTE | 2020-05-15 15:30 | NUR ---
pt discharged to car with son, no c/o, initial admission assessment remains the same.
== END 2020-05-15 15:30 | disposition home or self-care (01) ==
LOC: COL.CAR 08:57
DX: Z45.2 Encounter for adjustment and management of vascular access device (principal); E11.9 Type 2 diabetes mellitus without complications; Z96.611 Presence of right artificial shoulder joint; Z90.710 Acquired absence of both cervix and uterus; Z79.84 Long term (current) use of oral hypoglycemic drugs; Z86.711 Personal history of pulmonary embolism; Z86.718 Personal history of other venous thrombosis and embolism; Z79.01 Long term (current) use of anticoagulants
CPT/HCPCS: J1644; J2250; J2405; J3010; J7050; Q9967

== ENCOUNTER → 2021-04-20 | Outpatient (CLI) | payer MEDICARE, BC ==
[~2021-04-20] MED LIST changes: +DESYREL 100MG100 MG PO; +ONE-A-DAY ESSE1 EACH PO; +REQUIP 1MG T1 MG/TAB PO; +VITAMIN C500 MG PO; +VITAMIN D 50,1.25 MG PO
== END ==
LOC: MC.RAD 10:15
DX: Z12.31 Encounter for screening mammogram for malignant neoplasm of breast (principal)

== ENCOUNTER → 2022-03-10 | Outpatient (CLI) | payer MEDICARE, BC ==
[~2022-03-10] MED LIST changes: +D3-5050000 IU PO
== END ==
LOC: COL.RAD 09:59
DX: K43.2 Incisional hernia without obstruction or gangrene (principal); K44.9 Diaphragmatic hernia without obstruction or gangrene; K40.90 Unilateral inguinal hernia, without obstruction or gangrene, not specified as recurrent; K42.9 Umbilical hernia without obstruction or gangrene; Z90.49 Acquired absence of other specified parts of digestive tract; Z98.890 Other specified postprocedural states
CPT/HCPCS: Q9967

== ENCOUNTER 2022-03-30 10:37 | Day surgery (SDC) | payer MEDICARE, BC ==
[2022-03-30] VITALS (7 sets, daily range): BP systolic 109–138; BP diastolic 33–69; PULSE 90–94; TEMP 97.3–97.7
[~2022-03-30] VITALS: Ht 160 cm; Wt 83.4 kg
[~2022-03-30 10:37] MED LIST changes: -D3-5050000 IU PO
[2022-03-30] MEDS ORDERED: D3-5050000 IU PO ×2 (11:13→11:15)
[2022-03-30] MEDS ORDERED: NORCO 325 MG-51 TAB PO (14:59)
--- NOTE | 2022-03-30 15:45 | NUR ---
PT TO BAY 2 PER CART FROM PACU. RECEIVED REPORT FROM ANAMARIA WYLIE. PT RESTING COMFORTABLY. VS OBTAINED. PT ON 1L PER NC. PT DENIES ANY NEEDS AT THIS TIME. CALL LIGHT WITHIN REACH. WILL CONTINUE TO MONITOR.
--- NOTE | 2022-03-30 16:00 | NUR ---
PT CONTINUES TO REST COMFORTABLY. TOLERATING WATER WITHOUT DIFFICULTY. PT REMAINS ON 1L PER NC. DENIES ANY ADDITIONAL NEEDS AT THIS TIME.
--- NOTE | 2022-03-30 16:15 | NUR ---
PT DECREASE TO 0.5L PER NC. PT CONTINUES TO REST COMFORTABLY. WILL CONTINUE TO MONITOR. DENIES ANY NEEDS AT THIS TIME.
--- NOTE | 2022-03-30 16:30 | NUR ---
PT TOLERATING DIET SPRITE AND PUDDING. CONTINUES TO DENY ANY NEEDS.
--- NOTE | 2022-03-30 16:45 | NUR ---
PT STATES SHE IS READY FOR DISCHARGE.
--- NOTE | 2022-03-30 17:00 | NUR ---
IV DC'D AT THIS TIME. PT TOLERATED WELL. DISCHARGE EDUCATION COMPLETED WITH PT AND HER SON. VERBALIZED UNDERSTANDING OF HOME AND FOLLOW UP CARE. ALL QUESTIONS ANSWERED. DISCHARGE PAPERWORK GIVEN TO PT.
--- NOTE | 2022-03-30 17:30 | NUR ---
PT OFF UNIT PER WHEELCHAIR. PT DISCHARGE TO HOME WITH SON PER PERSONA VEHICLE.
== END 2022-03-30 17:30 | disposition home or self-care (01) ==
LOC: SDCO 10:37
DX: K43.6 Other and unspecified ventral hernia with obstruction, without gangrene (principal); K66.0 Peritoneal adhesions (postprocedural) (postinfection)
CPT/HCPCS: A4314; C1781; J0330; J1100; J1170; J1885; J2250; J2405; J2704; J2795; J3010; J7120

== ENCOUNTER 2022-04-05 12:37 | Emergency (ER) | payer MEDICARE, BC ==
[~2022-04-05] VITALS: Ht 157.5 cm; Wt 81.8 kg
[~2022-04-05 12:37] MED LIST changes: +D3-5050000 IU PO
[2022-04-05 12:45] VITALS: TEMP 98.3
[2022-04-05 13:17] LABS: BASO # 0.1 K/mm3 (0.0-0.2); BASO % 0.7 % (0.0-2.0); EOS # 0.3 K/mm3 (0.0-0.7); EOS % 2.4 % (0.0-4.0); GRAN # 7.1 K/mm3 (1.4-6.5); GRAN % 69.3 % (42.2-75.2); LYMPH # 1.5 K/mm3 (1.2-3.4); LYMPH % 14.7 % (20.0-51.0); MEAN CELL VOLUME 93 fl (80.0-100.0); MEAN CORPUSCULAR HEMOGLOBIN 33 pg (27-31); MEAN CORPUSCULAR HGB CONC 36 g/dl (33.0-37.0); MEAN PLATELET VOLUME 8.9 fl (7.4-10.4); MONO # 1.2 K/mm3 (0.1-0.6); MONO % 11.5 % (1.7-9.3); PLATELET COUNT 351 K/mm3 (130-400); RED BLOOD COUNT 3.94 M/mm3 (4.10-5.30); REDCELL DISTRIBUTION WIDTH-CV 12.6 % (11.5-14.5)
[2022-04-05 13:22] LABS: HEMATOCRIT 36.5 % (37.0-47.0)
[2022-04-05 13:34] LABS: ALBUMIN 3.6 gm/dL (3.4-4.8); BILIRUBIN,TOTAL 0.8 mg/dL (0.2-1.2); CALCIUM 9.3 mg/dL (8.4-10.2); CREATININE, serum 0.81 mg/dL (0.57-1.11); POTASSIUM 4.5 mmol/L (3.5-4.5); TOTAL PROTEIN 7.2 gm/dL (6.2-8.1)
[2022-04-05 14:55] VITALS: BP 131/76; PULSE 98
== END 2022-04-05 14:55 | disposition home or self-care (01) ==
LOC: COL.ER 12:37
PROVIDERS: Emergency Medicine
DX: K59.00 Constipation, unspecified (principal)

== ENCOUNTER → 2022-05-27 | Outpatient (CLI) | payer MEDICARE, BC | LOC: MC.RAD 04-29 10:30 | DX: Z12.31 Encounter for screening mammogram for malignant neoplasm of breast (principal) ==

== ENCOUNTER 2022-11-26 13:02 | Inpatient (IN) | payer MEDICARE, BC ==
[~2022-11-26] VITALS: Ht 157.5 cm; Wt 83.7 kg
[2022-11-26] VITALS (31 sets, daily range): BP systolic 127–145; BP diastolic 75–79; PULSE 72–109; TEMP 98–98.5; O2SAT 92–98
[2022-11-26 13:43] LABS: COLLECTION METHOD CLEAN CATCH
[2022-11-26 13:52] LABS: BASO # 0.1 K/mm3 (0.0-0.2); BASO % 0.6 % (0.0-2.0); EOS % 0.1 % (0.0-4.0); GRAN # 6.9 K/mm3 (1.4-6.5); HEMATOCRIT 39.5 % (37.0-47.0); LYMPH # 0.6 K/mm3 (1.2-3.4); LYMPH % 7.1 % (20.0-51.0); MEAN CELL VOLUME 94 fl (80.0-100.0); MEAN CORPUSCULAR HEMOGLOBIN 33 pg (27-31); MEAN CORPUSCULAR HGB CONC 35 g/dl (33.0-37.0); MEAN PLATELET VOLUME 8.8 fl (7.4-10.4); MONO # 1.1 K/mm3 (0.1-0.6); MONO % 12.7 % (1.7-9.3); PLATELET COUNT 251 K/mm3 (130-400); RED BLOOD COUNT 4.21 M/mm3 (4.10-5.30); REDCELL DISTRIBUTION WIDTH-CV 12.4 % (11.5-14.5)
[2022-11-26 14:05] LABS: MUCOUS Present (NOT PRESENT); SQUAMOUS EPITHELIAL 0-2 /hpf (0-10); URINE BACTERIA Rare /hpf (NONE SEEN)
[2022-11-26 14:09] LABS: URINE COLOR Yellow (YELLOW)
[2022-11-26 14:15] LABS: PH 6.5 (5-8); URINE APPEARANCE Clear (CLEAR/HAZY)
[2022-11-26 14:16] LABS: URINE BLOOD TRACE-INTACT (NEGATIVE); URINE GLUCOSE Negative (NEGATIVE); URINE KETONE TRACE (NEGATIVE); URINE NITRATE Negative (NEGATIVE); URINE PROTEIN(semi-quant) TRACE (NEGATIVE); URINE UROBILINOGEN 0.2 (NEGATIVE)
[2022-11-26 14:21] LABS: ALBUMIN 3.7 gm/dL (3.4-4.8); BILIRUBIN,TOTAL 0.6 mg/dL (0.2-1.2); C-REACTIVE PROTEIN 0.55 mg/dL (0.00-0.50); CALCIUM 8.9 mg/dL (8.4-10.2); CREATININE, serum 0.79 mg/dL (0.57-1.11); POTASSIUM 4.1 mmol/L (3.5-4.5); TOTAL PROTEIN 7.3 gm/dL (6.2-8.1)
[2022-11-26] MEDS ORDERED: VTAMINC250TA (14:57)
[2022-11-26] MEDS ORDERED: DESYREL 50MG50 MG PO (14:58)
[2022-11-26] MEDS ORDERED: GLUCOPHAGE500 MG/TAB PO (14:59)
[2022-11-26] MEDS ORDERED: POTASSIUM (17:00)
--- NOTE | 2022-11-26 17:45 | NUR ---
Reported off to ANAMARIA Gandhi; patient brought to ICU by mistake, as patient was supposed to be medical status. Did patient admission and brought patient up to room 353. Patient was taken up in a wheelchair; she was in stable condition, and vital signs were all within normal limits.
--- NOTE | 2022-11-26 18:10 | NUR ---
PATIENT ARRIVE TO UNIT FROM ICU IN STABLE CONDITION. PER RECHARGER PATIENTS FULL ADMISSION COMPLETED. PATIENT SETTLED INTO BED AND ORIENTED TO ROOM. EDUCATION ON NO FREE WATER ORDER PROVIDED, PATIENT VERBALIZED UNDERSTANDING. IV FLUIDS INITIATED, PURE WICK IN PLACE PER PATIENT REUQEST, BED ALARM ON, CALL LIGHT WTIH IN REACH.
[2022-11-26 20:37] LABS: CALCIUM 8.4 mg/dL (8.4-10.2); CREATININE, serum 0.82 mg/dL (0.57-1.11); POTASSIUM 4.1 mmol/L (3.5-4.5)
[2022-11-27] VITALS (10 sets, daily range): BP systolic 125–150; BP diastolic 68–75; PULSE 72–86; TEMP 97.8–978.9
[2022-11-27 01:34] LABS: CALCIUM 8.8 mg/dL (8.4-10.2); CREATININE, serum 0.75 mg/dL (0.57-1.11)
--- NOTE | 2022-11-27 04:52 | NUR ---
THE PATIENT IS VERY RESTLESS; PCT WALKED PT SB WITH WALKER >150 FEET.
[2022-11-27 06:22] LABS: BASO % 0.4 % (0.0-2.0); EOS % 0.1 % (0.0-4.0); GRAN # 5.3 K/mm3 (1.4-6.5); GRAN % 69.7 % (42.2-75.2); HEMOGLOBIN 12.8 g/dl (12.5-16.0); LYMPH # 1.1 K/mm3 (1.2-3.4); MEAN CELL VOLUME 93 fl (80.0-100.0); MEAN CORPUSCULAR HEMOGLOBIN 33 pg (27-31); MEAN CORPUSCULAR HGB CONC 36 g/dl (33.0-37.0); MEAN PLATELET VOLUME 9.3 fl (7.4-10.4); MONO # 1.1 K/mm3 (0.1-0.6); MONO % 14.8 % (1.7-9.3); PLATELET COUNT 266 K/mm3 (130-400); RED BLOOD COUNT 3.85 M/mm3 (4.10-5.30); REDCELL DISTRIBUTION WIDTH-CV 12.1 % (11.5-14.5)
[2022-11-27 06:31] LABS: HEMATOCRIT 35.6 % (37.0-47.0)
[2022-11-27 06:41] LABS: CALCIUM 8.5 mg/dL (8.4-10.2); CREATININE, serum 0.71 mg/dL (0.57-1.11); MAGNESIUM 1.4 mg/dL (1.6-2.6)
--- NOTE | 2022-11-27 08:21 | NUR ---
PATIENT STANDBY ASSIST WITH WALKER TO TOILET AND THEN BACK TO BED. PATIETNT ABLE TO CHANGE HER BRIEF AND TOILET INDEPENDENTLY. PATIETN CURRENTLY RESTING IN BED. DENIES ANY NEEDS OR COMPLAINTS AT THIS TIME. CALL LIGHT [facility] IN REACH. BED ALARM ON, SEIZURE PADS IN PLACE.
--- NOTE | 2022-11-27 11:58 | NUR ---
SW met with patient to complete intake. Patient provides that she lives in [facility] alone. Next of kin is her son Nathan [phone] who is also appointed as her DPOA of as well as alt-son Magdi Alonso [phone]. Patient states that she utilizes a cane, is independent with ADL's and does not utilize HH services at this time, but would like resources. RUTH provided resources to for patient choice. DC plan is to return to her home. RUTH will continue to follow. DC plan: home (provided HH agency resource for choices)
[2022-11-27 13:32] LABS: CREATININE, serum 0.8 mg/dL (0.57-1.11); FRACTIONAL EXCRETION OF NA+ 2.32 %
--- NOTE | 2022-11-27 20:15 | NUR ---
Na labs are 127. Hospitalist notified of lab values. And per verbal orders, pt is good continue receiving her IV fluids.
[2022-11-27 20:32] LABS: CALCIUM 8.2 mg/dL (8.4-10.2); CREATININE, serum 0.83 mg/dL (0.57-1.11); POTASSIUM 4.1 mmol/L (3.5-4.5)
[2022-11-28 00:07] VITALS: BP 142/79; PULSE 88; TEMP 98.5
--- NOTE | 2022-11-28 00:17 | NUR ---
Tele called to report HR 130 oin pt. This OUTSOLE CASER went immediately to check on pt, and pt was up next to her bed at the moment of entry to her room. Pt was redirectioned to her bed and assisted to lay down. Pt was moving her BUE as if she was trying to grab something. Once in bed. VS were taken. HR 88; RR 16; BP 142/79; 02 SAT 94%; T 98.5. Hospitalist material control associate Jacque notified of this event. Per verbal orders fluids stopped. Hospitalist assessed pt. New orders received. Pt assisted to the bathroom after event, and repositioned in bed. Belongings and call light within reach.
[2022-11-28 01:00] VITALS: PULSE 88; TEMP 98.5
--- NOTE | 2022-11-28 01:00 | NUR ---
Na labs are 130. Hospitalist Jacque notified of recent lab values, and per orders fluids continue to be on hold. Pt requested to get repositioned again. Refuse to wear SCDs at this time. Call light within reach.
[2022-11-28 04:49] VITALS: BP 109/51; PULSE 87; TEMP 98.5
[2022-11-28 05:00] VITALS: PULSE 87; TEMP 98.5
[2022-11-28 06:51] LABS: CALCIUM 8.5 mg/dL (8.4-10.2); CREATININE, serum 0.77 mg/dL (0.57-1.11); POTASSIUM 4.1 mmol/L (3.5-4.5)
[2022-11-28 08:00] VITALS: BP 140/59; PULSE 80; TEMP 98.3
--- NOTE | 2022-11-28 10:08 | NUR ---
Initial visit; Patient thanked Night Assistant for looking in on her and retrieving her phone from the floor. Patient states she is going home today and has had a very pleasant experience here at [facility].
--- NOTE | 2022-11-28 11:00 | NUR ---
PATIENT ALERT, AWAKE AND ORIENTED. PATIENT GIVEN DISCHARGE INSTRUCTIONS AND EDUCATION. THIS RN EDUCATED PATIENT ON HOME DIET AN FREE WATER RESTRICITON OF EDUCATION. TEACH BACK PROVIDED. IV AND TELE DISCONTINUED. PATIENT AWAITING SON TO ARRIVE TOTAKE HER HOME
--- NOTE | 2022-11-28 11:30 | NUR ---
PATIENT TAKEN TO ER ENTRANCE BY PCT VIA [employer] WHERE SHE LEFT IN STABLE CONITION WITH HER SON.
== END 2022-11-28 11:30 | disposition home or self-care (01) | DRG 641 ==
LOC: COL.ER 13:02 → ICU 15:01 → MEDICAL 15:01
PROVIDERS: Family Medicine; ADMIT Internal Medicine
DX: E87.1 Hypo-osmolality and hyponatremia (principal); K52.9 Noninfective gastroenteritis and colitis, unspecified; E78.5 Hyperlipidemia, unspecified; E11.9 Type 2 diabetes mellitus without complications; F41.9 Anxiety disorder, unspecified; G25.81 Restless legs syndrome; E87.8 Other disorders of electrolyte and fluid balance, not elsewhere classified; E86.1 Hypovolemia; K25.9 Gastric ulcer, unspecified as acute or chronic, without hemorrhage or perforation; E83.42 Hypomagnesemia; Z96.611 Presence of right artificial shoulder joint; Z96.651 Presence of right artificial knee joint; Z98.51 Tubal ligation status; Z90.710 Acquired absence of both cervix and uterus; Z90.49 Acquired absence of other specified parts of digestive tract; Z86.718 Personal history of other venous thrombosis and embolism; Z86.711 Personal history of pulmonary embolism; Z79.84 Long term (current) use of oral hypoglycemic drugs; Z23 Encounter for immunization
CPT/HCPCS: J1650; J2405; J3475; J7030; J7120; J7131

== ENCOUNTER 2024-05-05 12:20 | Emergency (ER) | payer MEDICARE, BC ==
[~2024-05-05] VITALS: Ht 157.5 cm; Wt 84.1 kg
[~2024-05-05 12:20] MED LIST changes: +DESYREL 50MG50 MG PO; +POTASSIUM; +VTAMINC250TA
[2024-05-05 12:24] VITALS: TEMP 99.1
[2024-05-05] MEDS ORDERED: HYDROcodone/Chlorphen Polst ER Susp 10-8 MG/5 ML UD PO ONE (12:45)
[2024-05-05 12:56] LABS: BASO # 0.1 K/mm3 (0.0-0.2); BASO % 0.9 % (0.0-2.0); EOS # 0.3 K/mm3 (0.0-0.7); EOS % 3.5 % (0.0-4.0); GRAN # 5.6 K/mm3 (1.4-6.5); GRAN % 64.3 % (42.2-75.2); HEMATOCRIT 40.7 % (37.0-47.0); HEMOGLOBIN 13.7 g/dl (12.5-16.0); LYMPH # 1.5 K/mm3 (1.2-3.4); LYMPH % 17.9 % (20.0-51.0); MEAN CELL VOLUME 99 fl (80.0-100.0); MEAN CORPUSCULAR HEMOGLOBIN 33 pg (27-31); MEAN CORPUSCULAR HGB CONC 34 g/dl (33.0-37.0); MEAN PLATELET VOLUME 9.4 fl (7.4-10.4); MONO # 1.1 K/mm3 (0.1-0.6); MONO % 12.9 % (1.7-9.3); PLATELET COUNT 301 K/mm3 (130-400); REDCELL DISTRIBUTION WIDTH-CV 13.4 % (11.5-14.5)
[2024-05-05 13:13] LABS: ALBUMIN 3.9 g/dL (3.4-4.8); BILIRUBIN,TOTAL 0.5 mg/dL (0.2-1.2); CALCIUM 8.4 mg/dL (8.4-10.2); CREATININE, serum 0.81 mg/dL (0.57-1.11); POTASSIUM 4.5 mEq/L (3.5-4.5); TOTAL PROTEIN 7.9 g/dl (6.2-8.1)
[2024-05-05 14:25] VITALS: BP 137/87; PULSE 106
== END 2024-05-05 14:25 | disposition home or self-care (01) ==
LOC: COL.ER 12:20
PROVIDERS: Physician Assistant
DX: B34.9 Viral infection, unspecified (principal); R05.9 Cough, unspecified; J02.9 Acute pharyngitis, unspecified

== ENCOUNTER 2024-05-06 13:52 | Inpatient (IN) | payer MEDICARE, BC ==
[~2024-05-06] VITALS: Ht 160 cm; Wt 85.2 kg
[2024-05-06] MEDS ORDERED: Cefepime 1 G in Water For Injection,Sterile 10 ML IV ONE (14:15)
[2024-05-06] MEDS ORDERED: NS 1,000 ML IV ONE ×2 (14:15→15:30)
[2024-05-06 14:57] LABS: BASO # 0.1 K/mm3 (0.0-0.2); BASO % 0.4 % (0.0-2.0); EOS # 0.1 K/mm3 (0.0-0.7); GRAN # 11.3 K/mm3 (1.4-6.5); GRAN % 84.3 % (42.2-75.2); HEMATOCRIT 44.4 % (37.0-47.0); HEMOGLOBIN 15.1 g/dl (12.5-16.0); LYMPH % 7.4 % (20.0-51.0); MEAN CELL VOLUME 97 fl (80.0-100.0); MEAN CORPUSCULAR HEMOGLOBIN 33 pg (27-31); MEAN CORPUSCULAR HGB CONC 34 g/dl (33.0-37.0); MEAN PLATELET VOLUME 9.9 fl (7.4-10.4); MONO # 0.9 K/mm3 (0.1-0.6); MONO % 6.5 % (1.7-9.3); PLATELET COUNT 289 K/mm3 (130-400); REDCELL DISTRIBUTION WIDTH-CV 13.3 % (11.5-14.5)
[2024-05-06 15:10] LABS: ALBUMIN 4.1 g/dL (3.4-4.8); BILIRUBIN,TOTAL 0.8 mg/dL (0.2-1.2); CREATININE, serum 1.49 mg/dL (0.57-1.11); POTASSIUM 3.9 mEq/L (3.5-4.5); TOTAL PROTEIN 8.2 g/dl (6.2-8.1)
[2024-05-06] MEDS ORDERED: NS 500 ML IV ONE (15:30)
[2024-05-06 15:55] LABS: COLLECTION METHOD CLEAN CATCH
[2024-05-06 16:02] LABS: PH 5.5 (5.0-8.5); URINE APPEARANCE CLOUDY (CLEAR/HAZY); URINE BLOOD 3+ (NEGATIVE); URINE COLOR Dark Yellow (YELLOW); URINE GLUCOSE NEGATIVE (NEGATIVE); URINE KETONE 1+ (NEGATIVE); URINE NITRATE NEGATIVE (NEGATIVE); URINE PROTEIN(semi-quant) 3+ (NEGATIVE)
[2024-05-06 16:22] LABS: SQUAMOUS EPITHELIAL 0-2 /hpf (0-10); URINE BACTERIA MANY /hpf (NONE SEEN); URINE RBC 20-50 /hpf (0-2); URINE WBC 20-50 /hpf (0-2)
[2024-05-06] MEDS ORDERED: rOPINIRole 1 MG TAB PO ONE (16:30)
[2024-05-06] MEDS ORDERED: NS 1,000 ML IV SCH (17:45)
[2024-05-06] MEDS ORDERED: *Potassium Replacement Protocol MC SCH (17:45)
[2024-05-06] MEDS ORDERED: Insulin Lispro (HumaLOG) SQ SCH (18:00)
[2024-05-06] MEDS ORDERED: Dextrose (Glucose) 15 GM (4 x 3.75 GM) Chewable TABLET PACK PO PRN (18:00)
[2024-05-06] MEDS ORDERED: Dextrose 50% Water 25 GM/50 ML SYRINGE IV PRN (18:00)
[2024-05-06] MEDS ORDERED: Glucagon 1 MG VIAL IM PRN (18:00)
[2024-05-06 19:56] VITALS: BP 146/88; PULSE 104; TEMP 98.5
--- NOTE | 2024-05-06 20:31 | NUR ---
THE PATIENT ARRIVED VIA ED CART ACCOMPANIED BY ED STAFF. THE PATIENT WAS ALERT AND ORIENTED. THE PATIENT REPORTED GENERALIZED PAIN 5/10. IVF INFUSING AT 100/HR UPON ARRIVAL. THE PATIENT WAS ORIENTED TO THE ROOM AND BED CONTROLS. CALL LIGHT WITHIN REACH WELL THE PTS PERSONAL BELONGINGS. NO S/S OF DISTRESS NOTED.
[2024-05-06 20:45] VITALS: BP_SYST 116
[2024-05-06] MEDS ORDERED: Acetaminophen 325 MG TAB PO PRN (21:00)
[2024-05-06 23:30] VITALS: BP 116/72; PULSE 95; TEMP 98.3
[2024-05-06] MEDS ORDERED: Potassium Bicarbonate/Citrate 20 MEQ Effervescent TAB PO ONE (23:45)
[2024-05-06] MEDS ORDERED: rOPINIRole 1 MG TAB PO SCH (23:45)
[2024-05-07] VITALS (8 sets, daily range): BP systolic 98–148; BP diastolic 41–113; PULSE 91–99; TEMP 98.1–100.4
--- NOTE | 2024-05-07 02:08 | NUR ---
THE PATIENT HAS MULTIPLE SKIN ISSUES. 1. MEDIAL RIGHT FOOT VERY SMALL SKIN TEAR INLDA, NO DRAINAGE. 2. RIGHT ELBOW SMALL SKIN TEAR LONGWALL SHEARER OPERATOR, NO DRAINAGE. 3. BRUISING RIGHT HIP AND THIGH, LEFT SHOULDER, RIGHT ELBOW, LEFT ELBOW WITH REDNESS. 4. BUTTOCKS SLIGHT REDNESS BUT BLANCHABLE, REDNESS AROUND RECTUM, AREA CLEANSED AND BARRIER CREAM APPLIED. GROIN SOME REDNESS, LOOK TO BE SCRATCHES. AREA CLEANSED AND BARRIER CREAM APPLIED.
[2024-05-07] MEDS ORDERED: Cefepime 1 G in Water For Injection,Sterile 10 ML IV SCH ×2 (03:30→12:30)
[2024-05-07 07:05] LABS: BASO # 0.1 K/mm3 (0.0-0.2); BASO % 0.4 % (0.0-2.0); GRAN # 9.6 K/mm3 (1.4-6.5); GRAN % 80.3 % (42.2-75.2); HEMATOCRIT 38.5 % (37.0-47.0); LYMPH # 1.3 K/mm3 (1.2-3.4); LYMPH % 10.7 % (20.0-51.0); MEAN CELL VOLUME 99 fl (80.0-100.0); MEAN CORPUSCULAR HEMOGLOBIN 33 pg (27-31); MEAN CORPUSCULAR HGB CONC 34 g/dl (33.0-37.0); MEAN PLATELET VOLUME 10.8 fl (7.4-10.4); MONO % 8.1 % (1.7-9.3); PLATELET COUNT 229 K/mm3 (130-400); RED BLOOD COUNT 3.89 M/mm3 (4.10-5.30); REDCELL DISTRIBUTION WIDTH-CV 13.7 % (11.5-14.5)
[2024-05-07 07:11] LABS: HEMOGLOBIN 12.9 g/dl (12.5-16.0)
[2024-05-07] MEDS ORDERED: Insulin Lispro (HumaLOG) SQ SCH (08:00)
[2024-05-07 08:09] LABS: CALCIUM 7.5 mg/dL (8.4-10.2); CREATININE, serum 0.88 mg/dL (0.57-1.11); MAGNESIUM 1.7 mg/dL (1.6-2.6); PHOSPHOROUS 2.6 mg/dL (2.3-4.7); POTASSIUM 4.1 mEq/L (3.5-4.5)
--- NOTE | 2024-05-07 09:00 | NUR ---
patient alert and oriented x4. patient reports soreness all over body. patient reports pain at 7/10 all over body. patient shift assessment completed. on room air and resting in bed. call light within reach. bed at lowest position.bed alarm on.
--- NOTE | 2024-05-07 10:18 | NUR ---
Initial visit; Patient has a Viral Infections she says and is glad she is here getting the help she needs. Alejandra is very pleasant and states she would like to have Secretary keep her in her prayers.
[2024-05-07] MEDS ORDERED: Cetirizine 10 MG TAB PO SCH (10:30)
[2024-05-07] MEDS ORDERED: Magnesium Sulfate 2 GM/50 ML IV SOLN IV SCH (10:30)
--- NOTE | 2024-05-07 15:00 | NUR ---
Concert Promoter met with patient to discuss discharge planning. Patient lives alone in [place] at the [facility]. Patient sees Dr. Megan Pressley for primary care and gets her medications from [facility] [address]. Patient uses a cane in her apartment and a FWW when she leaves her apartment. Patient reported she is normally independent with ADLS, including driving. Patient advised she went to bed after going to the doctor for a respiratory illness and woke up on the floor. Patient advised she was on the floor all night because she could not reach the phone. SW reviewed PT/OT recommendation with patient who is in agreement. SW discussed options for post acute rehab and provided Medicare.gov list of SNF options. Patient's preferences are 1) [facility] and 2) [facility]. Patient advised her two sons, Nathan (ph#[phone]) and Lamont. After intake, SW contacted Nathan to give update. RUTH contacted [facility] and gave referral. RUTH also faxed referral to Silvia at [facility]. Discharge Plan: [facility] vs SNF
[2024-05-07] MEDS ORDERED: Doxycycline Monohydrate 100 MG CAP PO SCH (17:49)
[2024-05-07] MEDS ORDERED: predniSONE 10 MG TAB PO SCH (18:00)
--- NOTE | 2024-05-07 20:30 | NUR ---
SHIFT ASSSESMENT COMPLETE. PATIENT SITTING UP IN BED AWAKE AND AXO X4. LOPEZ DRAINING PALE YELLOW CLEAR URINE. PATIENT CURRENTLY HAS LOW GRADE FEVER 100.5. PRN TYLENOL ADMINISTERED. OTHER VS ARE WNL. TELE IS CURRENTLY NS AT 88 BPM. PATIENT STATES NO OTHER NEEDS AT THIS TIME. CALL LIGHT WITHIN REACH, BED ALARM ON.
[2024-05-07] MEDS ORDERED: rOPINIRole 1 MG TAB PO SCH (21:00)
[2024-05-07] MEDS ORDERED: Fluticasone Nasal 50 MCG/Spray 16 GM BOTTLE NS SCH (21:00)
[2024-05-08 00:16] VITALS: BP 147/73; PULSE 89; TEMP 99
[2024-05-08 01:00] VITALS: BP_SYST 147
[2024-05-08 04:09] VITALS: BP 143/69; PULSE 77; TEMP 98.6
--- NOTE | 2024-05-08 04:33 | NUR ---
ENTERED PATIENT'S ROOM TO ADMINISTER IV ABX. EXP WHEEZES COULD BE NOTED WITH FINE CRACKLES. NO DUONEBS ORDERED. WILL PASS TO DAYSHIFT TO GET ORDERS. VS ARE WNL. TELE IS NS. PATIENT DENIES SOA AND CHEST PAIN.
[2024-05-08 04:45] VITALS: BP_SYST 143
[2024-05-08 06:41] LABS: BASO % 0.3 % (0.0-2.0); EOS % 0.3 % (0.0-4.0); GRAN # 8.1 K/mm3 (1.4-6.5); GRAN % 78.4 % (42.2-75.2); HEMOGLOBIN 11.8 g/dl (12.5-16.0); LYMPH # 1.4 K/mm3 (1.2-3.4); LYMPH % 13.4 % (20.0-51.0); MEAN CELL VOLUME 99 fl (80.0-100.0); MEAN CORPUSCULAR HEMOGLOBIN 33 pg (27-31); MEAN CORPUSCULAR HGB CONC 33 g/dl (33.0-37.0); MEAN PLATELET VOLUME 9.7 fl (7.4-10.4); MONO # 0.7 K/mm3 (0.1-0.6); MONO % 6.9 % (1.7-9.3); PLATELET COUNT 249 K/mm3 (130-400); RED BLOOD COUNT 3.58 M/mm3 (4.10-5.30); REDCELL DISTRIBUTION WIDTH-CV 13.7 % (11.5-14.5)
[2024-05-08 06:52] LABS: HEMATOCRIT 35.4 % (37.0-47.0)
[2024-05-08 07:15] LABS: ALBUMIN 2.6 g/dL (3.4-4.8); CALCIUM 7.7 mg/dL (8.4-10.2); CREATININE, serum 0.73 mg/dL (0.57-1.11); MAGNESIUM 1.7 mg/dL (1.6-2.6); PHOSPHOROUS 2.1 mg/dL (2.3-4.7); POTASSIUM 4.1 mEq/L (3.5-4.5)
[2024-05-08 07:46] VITALS: BP 140/69; PULSE 77; TEMP 98.6
--- NOTE | 2024-05-08 08:00 | NUR ---
Patient sitting up in the recliner. A&Ox4. VSS. IV CDI. Valdivia intact. Droplet/contact precautions in place. Chair alarm on. Call light within reach
[2024-05-08] MEDS ORDERED: MONODOX100 PO (10:00)
[2024-05-08] MEDS ORDERED: Menthol Cough/Sore Throat LOZENGE MM PRN (10:00)
[2024-05-08] MEDS ORDERED: PREDNISONE10 MG PO (10:00)
[2024-05-08] MEDS ORDERED: Magnesium Sulfate 2 GM/50 ML IV SOLN IV SCH (10:00)
[2024-05-08] MEDS ORDERED: MAXIPIME1 GM IV (10:01)
--- NOTE | 2024-05-08 10:14 | NUR ---
Patient is accepted to IPR and will discharge today. SW notified patient's son, Nathan and provided him information about what to expect during IPR stay. RUTH also notified Silvia at [facility].
--- NOTE | 2024-05-08 10:40 | NUR ---
Valdivia removed, tip/balloon intact. 10ml removed from the balloon. Pericare provided before and after removal. Patient tolerated well. No further needs expressed. Nurse instructed the patient to call when needing to use the bathroom. Call light within reach
--- NOTE | 2024-05-08 11:28 | NUR ---
Patient voided in the BSC. No further needs expressed
[2024-05-08 11:44] VITALS: BP 139/81; PULSE 88; TEMP 99.6
[2024-05-08] MEDS ORDERED: NS IV SCH (12:00)
[2024-05-08] MEDS ORDERED: SODIUM PHOSPHATE IV SCH (12:00)
[2024-05-08] MEDS ORDERED: [UNRECOGNIZED DRUG - OTHER] IV SCH (12:00)
--- NOTE | 2024-05-08 14:24 | NUR ---
Report called to ANAMARIA Rodriguez.
--- NOTE | 2024-05-08 14:55 | NUR ---
New IV site started. Patient taken by wheelchair with personal belongings to room 334. No further needs expressed. ANAMARIA Rodriguez updated
== END 2024-05-08 14:55 | DRG 557 ==
LOC: COL.ER 13:52 → MEDICAL 16:45
PROVIDERS: Personal Emergency Response Attendant; ADMIT Internal Medicine
DX: M62.82 Rhabdomyolysis (principal); A41.9 Sepsis, unspecified organism; R65.20 Severe sepsis without septic shock; N39.0 Urinary tract infection, site not specified; N17.9 Acute kidney failure, unspecified; E87.20 Acidosis, unspecified; M25.552 Pain in left hip; M25.551 Pain in right hip; E78.5 Hyperlipidemia, unspecified; Z96.611 Presence of right artificial shoulder joint; E11.9 Type 2 diabetes mellitus without complications; J02.9 Acute pharyngitis, unspecified; F41.9 Anxiety disorder, unspecified; E83.39 Other disorders of phosphorus metabolism; E83.42 Hypomagnesemia; B34.8 Other viral infections of unspecified site; B96.89 Other specified bacterial agents as the cause of diseases classified elsewhere; Z96.651 Presence of right artificial knee joint; R74.01 Elevation of levels of liver transaminase levels; G25.81 Restless legs syndrome; Z86.711 Personal history of pulmonary embolism; Z86.718 Personal history of other venous thrombosis and embolism; Z90.710 Acquired absence of both cervix and uterus; Z90.49 Acquired absence of other specified parts of digestive tract; Z98.51 Tubal ligation status; Z79.84 Long term (current) use of oral hypoglycemic drugs; Z79.899 Other long term (current) drug therapy; Z23 Encounter for immunization
CPT/HCPCS: J0692; J3475; J7030; J7040; J7512

== ENCOUNTER 2024-05-08 11:35 | Inpatient (IN) | payer MEDICARE, BC ==
[~2024-05-08] VITALS: Ht 160 cm; Wt 83.7 kg
[~2024-05-08 11:35] MED LIST changes: +MAXIPIME1 GM IV; +MONODOX100 PO; +PREDNISONE10 MG PO
--- NOTE | 2024-05-08 14:50 | NUR ---
PT ADMITTED FROM THE MEDICAL FLOOR. PT ADMITTED WITH UTI, FALL, AND PARAINFLUENZA. PT IS AXOX4. PT IS ON RA. PT'S VSS. PT IN DROPLET ISOLATION. PT ORIENTED TO ROOM AND FLOOR. PT IS A FALL RISK. PT IN CHAIR WITH CHAIR ALARM. CALL LIGHT WITHIN REACH AND PT INSTRUCTED TO CALL WITH ALL NEEDS.
[2024-05-08 15:00] VITALS: BP 135/99; PULSE 92; TEMP 98.2
[2024-05-08] MEDS ORDERED: Naloxone 0.4 MG/ML VIAL IV PRN (15:45)
[2024-05-08] MEDS ORDERED: Docusate Sodium 100 MG CAP PO PRN (15:45)
[2024-05-08] MEDS ORDERED: Acetaminophen 325 MG TAB PO PRN (15:45)
[2024-05-08] MEDS ORDERED: Polyethylene Glycol 3350 17 GM PDS PO PRN (15:45)
[2024-05-08] MEDS ORDERED: Sennosides/Docusate 8.6-50 MG TAB PO PRN (15:45)
[2024-05-08] MEDS ORDERED: CEFEPIME 1 GM IV SCH (15:45)
[2024-05-08] MEDS ORDERED: Insulin Lispro (HumaLOG) SQ SCH (17:00)
[2024-05-08 18:42] VITALS: BP 158/97; PULSE 97; TEMP 97.6
[2024-05-08] MEDS ORDERED: Pravastatin 20 MG TAB PO SCH (20:00)
[2024-05-08] MEDS ORDERED: Doxycycline Monohydrate 100 MG CAP PO SCH (21:00)
[2024-05-08] MEDS ORDERED: rOPINIRole 1 MG TAB PO SCH (21:00)
[2024-05-08] MEDS ORDERED: traZODone 50 MG TAB PO SCH (21:00)
[2024-05-08] MEDS ORDERED: Cefepime 1 G in Water For Injection,Sterile 10 ML IV SCH (22:00)
--- NOTE | 2024-05-08 22:42 | NUR ---
patient sitting up in recliner alert and oriented x4. denies chest pain and shortness of breath. IV in RAC is patent, site CDI. ambulated to bathroom and bed SBA with steady gait and walker. pt has no further needs, questions or concerns at this time. fall precautions in place, call light within reach. will continue to monitor.
[2024-05-09 05:40] VITALS: BP 145/68; PULSE 81; TEMP 98
[2024-05-09] MEDS ORDERED: Dextrose 50% Water 25 GM/50 ML SYRINGE IV PRN (07:30)
[2024-05-09] MEDS ORDERED: Dextrose (Glucose) 15 GM (4 x 3.75 GM) Chewable TABLET PACK PO PRN (07:30)
[2024-05-09] MEDS ORDERED: Glucagon 1 MG VIAL IM PRN (07:30)
--- NOTE | 2024-05-09 08:15 | NUR ---
Patient resting in bed, alert and oriented x 4, awaiting for therapy. Assessment completed, meds given. Pt at RA, complains of dry cough. No other needs at this time. Call light within reach.
[2024-05-09] MEDS ORDERED: predniSONE 10 MG TAB PO SCH (09:00)
[2024-05-09] MEDS ORDERED: Citalopram 20 MG TAB PO SCH (09:00)
--- NOTE | 2024-05-09 11:41 | NUR ---
spot worker notes pt is in droplet isolation precautions. SW called pt's room phone to discuss intake information. She reports to live alone in [place]. She sees Dr. Pressley for PCP needs and obtains medications from [facility] with no difficulties. She reports her son, Nathan [phone] as her contact and DPOA. RUTH verified this on file. She reports to be independent with ADLS and uses a cane and FWW for DME. She has stairs in her home, but uses the elevator to avoid them. Pt drives herself to/from appointments. She has no further needs. Discharge Plan: re-eval
[2024-05-09 18:45] VITALS: BP 145/74; PULSE 89; TEMP 98.5
--- NOTE | 2024-05-09 20:44 | NUR ---
PT ALERT AND ORIENTED, SITTING UP IN CHAIR VERY PLEASANT WATCHING TV. HAD MILD COUGH THAT IS AT TIMES PRODUCTIVE. NO PAIN REPORTED AT THIS TIME. ASSESSED AND MEDICATED PER EMAR. DENIES FURTHER NEED AT THIS TIME.
[2024-05-09] MEDS ORDERED: traMADol 50 MG TAB PO PRN (22:00)
[2024-05-09] MEDS ORDERED: Benzonatate 100 MG CAP PO SCH (22:00)
[2024-05-10 06:00] VITALS: BP 121/64; PULSE 78; TEMP 98.2
--- NOTE | 2024-05-10 06:24 | NUR ---
pt c/o pain in hips last night and pain from cough rated 9/10. pt has new orders for tessalon pearls and tramadol. This was theraputic, pt slept all night with one episode of incontinence.
--- NOTE | 2024-05-10 09:00 | NUR ---
PT SITTING IN CHAIR UPON ENTERING. ASSESSMENT DONE, MEDS GIVEN PER ORDER. PRN TYLENOL GIVEN FOR GENERALIZD PAIN. INT TO RIGHT AC PATENT. PT DENIES NEEDS. CHAIR ALARM ON, CALL LIGHT IN REACH
--- NOTE | 2024-05-10 11:09 | NUR ---
group care worker met with patient and her family members to check in. Patient is doing well. Family asked about information for life alerts. SW expressed she would be able to provide a list of options in the [facility]. SW provided the list of options for life alerts in the area.
[2024-05-10] MEDS ORDERED: Amoxicillin 500 MG CAP PO SCH (14:00)
--- NOTE | 2024-05-10 14:21 | NUR ---
community mental health worker faxed updates to [facility].
[2024-05-10 17:03] VITALS: BP 138/83; PULSE 86; TEMP 98.2
[2024-05-11 05:04] VITALS: BP 146/61; PULSE 97; TEMP 98.1
--- NOTE | 2024-05-11 07:36 | NUR ---
PT SITTING IN CHAIR UPON ENTERING, PER NIGHT RN PT HAD AN EPISODE OF INCONTINENCE THIS MORNING. ASSESSMENT DONE, MEDS GIVEN PER ORDER. PT GIVEN PRN TYLENOL. INT TO RIGHT AC LEAKING, IN PLACE UNTIL HOSPITALIST NOTIFIED. PRODUCTIVE COUGH NOTED, PT REPORTS IMPROVEMENT. PT DENIES NEEDS. CHAIR ALARM ON, CALL LIGHT IN REACH
[2024-05-11 08:49] LABS: ALBUMIN 3.1 g/dL (3.4-4.8); BILIRUBIN,TOTAL 0.9 mg/dL (0.2-1.2); CALCIUM 8.5 mg/dL (8.4-10.2); CREATININE, serum 0.68 mg/dL (0.57-1.11); POTASSIUM 3.8 mEq/L (3.5-4.5); TOTAL PROTEIN 7.1 g/dl (6.2-8.1)
--- NOTE | 2024-05-11 13:00 | NUR ---
DR LONGO NOTIFIED THAT PTS IV IS LEAKING AND OKAY WITH THIS RN DISCONTINUING IV. RIGHT AC INT REMOVED, CATHETER TIP INTAACT. PT IN CHAIR AND DENIES NEEDS. CHAIR ALARM ON, CALL LIGHT IN REACH
[2024-05-11 16:29] VITALS: BP 143/61; PULSE 106; TEMP 98.2
--- NOTE | 2024-05-11 19:30 | NUR ---
Assisted patient to the bathroom with walker and gaitbelt, steady gait, she voided and assisted back to bed, denies further needs.
--- NOTE | 2024-05-11 20:07 | NUR ---
Report given to Brandy CONRAD.
[2024-05-12 05:52] VITALS: BP 137/62; PULSE 92; TEMP 97.9
--- NOTE | 2024-05-12 07:13 | NUR ---
PT AMBULATED TO BATHROOM WITH WALKER, STANDBY ASSIST. PT IN CHAIR EATING BREAKFAST. PT REPORTS SORENESS TO LEFT LEG. CHAIR ALARM ON, CALL LIGHT IN REACH
--- NOTE | 2024-05-12 07:36 | NUR ---
PT IN CHAIR UPON ENTERING. ASSESSMENT DONE, MEDS GIVEN PER ORDER. PT REPORTS SORENESS TO LEFT LEG AND GIVEN PRN TYLENOL. ABRASION NOTED TO RIGHT PINKY TOE, PT REPORTS THIS IS FROM PREVIOUS FALL. PRODUCTIVE COUGH NOTED. CHAIR ALARM ON, CALL LIGHT IN REACH
[2024-05-12 16:51] VITALS: BP 126/61; PULSE 79; TEMP 98.3
[2024-05-13 06:00] VITALS: BP 133/53; PULSE 73; TEMP 98.2
--- NOTE | 2024-05-13 07:23 | NUR ---
Report received. Pt is awake and sitting up in recliner. Pt does not complain of pain at this time. No other concerns at this time. Pt chair alarm on. Call light within reach. Droplet isolation precautions in place.
--- NOTE | 2024-05-13 09:02 | NUR ---
0801 - Pt awake and alert in bed for morning assessment and med pass. Pt does not complain of pain at this time. No concerns at this time. Pt states her cough has been getting better and less frequent because of the tessalon pearls. Call light within reach. Chair alarm set.
--- NOTE | 2024-05-13 13:02 | NUR ---
Admission QIM scores were reviewed by the team. Code of 4 chosen for toileting hygiene was determined by team discussion to be the most usual performance for this patient during the discharge assessment period. Code of 4 chosen for putting on/taking off footwear was determined by team discussion to be the most usual performance before interventions for this patient during the assessment period. Code of 4 chosen for sit to lying was determined by team discussion to be the most usual performance before interventions for this patient during the assessment period. Code of 4 chosen for lying to sitting side of bed was determined by team discussion to be the most usual performance before interventions for this patient during the assessment period.--Estelita Garcia, PD
--- NOTE | 2024-05-13 15:49 | NUR ---
Clinical updates faxed to [facility]
[2024-05-13 16:32] VITALS: BP 107/84; PULSE 98; TEMP 97.7
--- NOTE | 2024-05-13 19:30 | NUR ---
PT A&O X4 SITTING UP IN CHAIR. PT AMBULATED TO BATHROOM& BACK TO BED WITH SBA. RATING PAIN TO HIP 02/13 & REQUESTING PRN TRAMADOL, GAVE PER JAN. DROPLET PRECAUTIONS FOLLOWED. PT DENIES FURTHER NEEDS. CALL LIGHT IN REACH & BED ALARM ON.
--- NOTE | 2024-05-14 05:45 | NUR ---
PT RESTING IN BED WITH UNLABORED RESP. NO FURTHER C/O PAIN. CALL LIGHT IN REACH & BED ALARM ON.
[2024-05-14 06:00] VITALS: BP 139/57; PULSE 81; TEMP 98.7
--- NOTE | 2024-05-14 07:12 | NUR ---
Pt awake, sitting up in chair. Pt does not complain of pain at this time. No concerns at this time. Chair alarm set. Call light within reach.
--- NOTE | 2024-05-14 08:49 | NUR ---
0755 - Pt awake and sitting up in chair for morning assessment and med pass. Pt does not complain of pain at this time. Pt is ready to work with therapy today. No concerns at this time. Call light within reach. Chair alarm set.
--- NOTE | 2024-05-14 15:04 | NUR ---
Social work student faxed clinical updates to [facility] .
[2024-05-14 17:30] VITALS: BP 118/61; PULSE 97; TEMP 98.2
--- NOTE | 2024-05-14 19:40 | NUR ---
PT A&O X4 SITTING UP IN RECLINER. SHIFT ASSESSMENT COMPLETE & HS MEDS GIVEN. PT AMBULATED TO BATHROOM & BACK TO BED WITH SBA. PT RATING PAIN TO HIP 02/13 & REQUESTING PRN TRAMADOL, GAVE PER JAN. DENIES OTHER NEEDS. CALL LIGHT IN REACH & BED ALARM ON
[2024-05-15 06:00] VITALS: BP 120/68; PULSE 72; TEMP 98.2
--- NOTE | 2024-05-15 08:46 | NUR ---
Pt doing well this morning. He has slight complaints of neck pain due to sleeping wrong and then her left shoulder which she stated is chronic. Pt has had breakfast, morning medications given and assisted pt with brushing her teeth and getting dressed. Pt sitting up in her chair and is ready for therapy.
--- NOTE | 2024-05-15 13:00 | NUR ---
Pt doing well, little to no complaints. Pt using call light when she has needs. Pt having some incontinence when she coughs. pt is wearing a brief for this. Pt attending therapy as scheduled
--- NOTE | 2024-05-15 17:15 | NUR ---
child abuse worker attended IPR team conference. Patient has made improvement and is scheduled to discharge on 05/21/24 with home health. SW was notified the team would like a family meeting scheduled for Monday. RUTH contacted patient's son whom confirmed he could be present on Monday at 9:30 am. SW was notified by patient that her son has set up her life alert, so she will have this when she returns home. SW reviewed the IPR team conference notes with patient. Patient understood. SW provided a copy of these notes to patient. RUTH discussed family meeting on Monday at 9:30 am. Patient understood. SW explained they would be recommending home health and noted patient has [facility] and wanted to know if she wanted to have their PT/OT team or if she wanted to look at another agency. Patient reports she would like to stay with the same agency. RUTH explained she would send the referral for her. RUTH Student faxed clinical updates to [facility]. Discharge plan: Home with Home Health
[2024-05-15 18:07] VITALS: BP 135/76; PULSE 100; TEMP 98.4
--- NOTE | 2024-05-15 19:45 | NUR ---
PT A&O X4 SITTING UP IN CHAIR. ASSESSMENT COMPLETE & HS MEDS GIVEN. PT REPORTING HIP PAIN 02/13 & REQUESTING PRN TRAMADOL, GAVE PER JAN. PT STILL ON DROPLET PRECAUTIONS. PT REPORTS SHE STILL HAS A COUGH BUT IS NOT PRODUCTIVE. AMBULATED AROUND ROOMO & TO BED WITH SBA. CALL LIGHT IN REACH & BED ALARM ON
[2024-05-16 05:48] VITALS: BP 138/69; PULSE 78; TEMP 97.8
--- NOTE | 2024-05-16 05:50 | NUR ---
PT RESTING IN BED W/ UNLABORED RESP. NO FURTHER C/O PAIN. CALL LIGHT IN REACH & BED ALARM ON
--- NOTE | 2024-05-16 09:00 | NUR ---
A&O X4. VSS. ON DROPLET PRECAUTIONS UNTIL NO COUGH PRESENT. NO C/O PAIN OR N/V. ASSIST X1 WITH WALKER. TOLERATING DIET WELL. PLANNING TO DISCHARGE HOME ON 05/21/24. BS STABLE SO NO INSULIN REQUIRED THIS AM.
--- NOTE | 2024-05-16 15:29 | NUR ---
Social work student faxed clinical updates to [facility] .
[2024-05-16 18:11] VITALS: BP 105/69; PULSE 103; TEMP 98.6
--- NOTE | 2024-05-16 19:16 | NUR ---
RECEIVED CHANGE OF SHIFT REPORT FROM DAY SHIFT NURSES. PATIENT UP IN CHAIR. PATIENT IN DROPLET/CONTACT ISOLATION IN PLACE. PATIENT WITH CALL LIGHT WITHIN PATIENT'S REACH. NO NEEDS REPORTED.
--- NOTE | 2024-05-16 20:00 | NUR ---
REQUESTED AND GIVEN TRAMADOL FOR DISCOMFORT TO RIGHT HIP FROM FALL AT HOME. NO STRESS INCONTINENCE REPORTED AT THIS TIME. CONTINUES ON DROPLET ISOLATION FOR DRY INTERMITTENT COUGH PER HOSP P/P AND D.O. DENIES COMPLAINTS OF CONSTIPATION, REPORTED HAD BM YESTERDAY. PATIENT ALSO REQUESTED STOOL SOFTENER WITH HS MEDS. SEE MAR FOR MEDS GIVEN. EXIT ALARMS ON WHEN UP IN CHAIR OR RESTING IN BED. CALL LIGHT WITHIN PATIENT'S REACH.
[2024-05-17 04:55] VITALS: BP 140/58; PULSE 78; TEMP 98.8
--- NOTE | 2024-05-17 07:19 | NUR ---
CHANGE OF SHIFT REPORT GIVEN TO DAY SHIFT NURSERAJEEV.
--- NOTE | 2024-05-17 12:13 | NUR ---
[employer] worker attended patient's family meeting with patient, her son and the IPR team. Patient is scheduled to discharge on Monday 05/21 with [facility] for PT and OT. Patient needs a tub transfer bench and reports to be ordering this today. Patient's son set patient up with a life alert button, KOEZY's to use to place emergency calls if she is unable to reach her phone and will be getting some cameras set up at floor level to check in case patient is not answering her phone as they worry about her falling like last time when she laid on the floor through the evening. Patient stated she wants to ensure they are able to check on her if she doesn't answer, so she is happy they are able to get these cameras set up. SW faxed updates to [facility]. Discharge plan: Home with [facility]
[2024-05-17 16:58] VITALS: BP 106/67; PULSE 73; TEMP 98.6
--- NOTE | 2024-05-17 19:13 | NUR ---
RECEIVED CHANGE OF SHIFT REPORT FROM DAY SHIFT NURSE. DROPLET ISOLATION IN PLACE AND CONTINUES.
[2024-05-18 05:41] VITALS: BP 112/47; PULSE 71; TEMP 98.2
--- NOTE | 2024-05-18 06:57 | NUR ---
CHANGE OF SHIFT REPORT GIVEN TO DAY SHIFT NURSE, SHANNON. PATIENT CONTINUES TO BE IN DROPLET ISOLATION DUE TO COUGH THAT IS NONPRODUCTIVE. TOOK TRAMADOL PRIOR TO HS FOR GENERALIZED DISCOMFORT.
--- NOTE | 2024-05-18 08:25 | NUR ---
Pt. sitting up in bed. Pt. is A&OX3, assessment complete. Pt. denies pain or other needs. Call light within reach.
[2024-05-18 18:43] VITALS: BP 97/60; PULSE 87; TEMP 98.1
--- NOTE | 2024-05-18 19:15 | NUR ---
RECEIVED CHANGE OF SHIFT REPORT FROM DAY SHIFT NURSE. PATIENT UP IN CHAIR WITH EXIT ALARM ON AND CALL LIGHT WITHIN PATIENT'S REACH. DENIES ANY NEEDS OR CONCERNS AT THIS TIME.
[2024-05-19 06:00] VITALS: BP 100/50; PULSE 82; TEMP 98.1
--- NOTE | 2024-05-19 07:12 | NUR ---
Change of shift report given to day shift nurseSuzette. Patient up in chair this morning report she was unable to go back to sleep after getting up to bathroom. Denies any needs or concerns at this time.
--- NOTE | 2024-05-19 09:30 | NUR ---
Patient awake, alert and oriented. States cough has improved greatly, very rarely has a dry cough. Sitting up in chair for breakfast. Ambulates through unit with x1 standby assist with walker. Back in chair after walk, chair alarm on with call light within reach. Denies further needs at this time.
[2024-05-19 18:00] VITALS: BP 100/60; PULSE 87; TEMP 98.1
--- NOTE | 2024-05-19 19:22 | NUR ---
RECEIVED CHANGE OF SHIFT REPORT FROM DAY SHIFT NURSE. PATIENT UP IN CHAIR, EXIT ALARM ON, CALL LIGHT WITHIN PATIENT'S REACH. NO NEEDS REPORTED AT TIME OF REPORT. DROPLET ISOLATION CONTINUES PER D.O.
--- NOTE | 2024-05-20 03:17 | NUR ---
COMPLAINED OF GENERALIZED PAIN AND LEFT KNEE PAIN. SEE MAR FOR PAIN MEDICATION GIVEN.
--- NOTE | 2024-05-20 03:46 | NUR ---
PATIENT RESTING IN BED WITH EYES CLOSED, BREATHING EVEN AND NONLABORED. EXIT ALARM ON, CALL LIGHT WITHIN PATIENT'S REACH. DROPLET ISOLATION CONTINUES PER D.O. UP WITH X1 STAFF ASST NEEDED, AMBULATING WITH FWW WITH NO REPORTED PROBLEMS OR CONCERNS THIS SHIFT.
[2024-05-20 05:18] VITALS: BP 126/53; PULSE 80; TEMP 97.9
--- NOTE | 2024-05-20 07:11 | NUR ---
Change of shift report given to day shift nurseSuzette.
--- NOTE | 2024-05-20 07:19 | NUR ---
BEDSIDE SHIFT REPORT RECIEVED AT THIS TIME.
--- NOTE | 2024-05-20 07:51 | NUR ---
SHIFT ASSESSMENT COMPLETED AT THIS TIME. MORNING MEDICATIONS ADMINISTERED WITHOUT COMPLICATIONS. PT A&OX4. PT DENIES PAIN AT THIS TIME. PT RESTING IN THE CHAIR AND IS WATCHING TV, AWAITING THERAPY TO ARRIVE. NO QUESTIONS AT THIS TIME.
--- NOTE | 2024-05-20 15:12 | NUR ---
SW faxed clinical updates to [facility] for discharge tomorrow.
--- NOTE | 2024-05-20 15:20 | NUR ---
PT RESTING IN CHAIR. PT DENIES PAIN, QUESTIONS OR CONCERNS AT THIS TIME. CALL LIGHT WITHIN REACH.
--- NOTE | 2024-05-20 15:55 | NUR ---
utility worker met with patient to review the important message from [employer]. Patient understood and signed the form. SW made copy, placed original in chart and provided copy to patient. Patient stated she was excited but will be worried the first couple days being back home. Patient reports she has a life alert, [employer] min[employer] and cameras going to be set up in her home. Discharge plan: Home with home health - [facility]
[2024-05-20 16:26] VITALS: BP 119/77; PULSE 83; TEMP 98
--- NOTE | 2024-05-20 20:00 | NUR ---
SHIFT ASSESSMENT COMPLETE. VSS. PATIENT RESTING IN RECLINER WATCHING TV. ALL NIGHT MEDS GIVEN ORDERED. PATIENT EXPRESS NO PAIN AT THIS TIME. FALL PRECAUTIONS IN PLACE AND CALL LIGHT IN REACH.
[2024-05-21 04:58] VITALS: BP 145/63; PULSE 92; TEMP 98
--- NOTE | 2024-05-21 05:33 | NUR ---
PATIENT SLEPT THROUGH THE NIGHT. PATIENT EXPRESSED NO CONCERNS OR REQUEST AT THIS TIME. BED ALARM ON AND CALL LIGHT IN PLACE.
--- NOTE | 2024-05-21 09:51 | NUR ---
front worker faxed discharge orders to [facility]. SW met with pt who reports she is eager to discharge today and her ride should be here around 11am. She has no questions or concerns for social service assistant. Discharge Plan: home with [facility]
--- NOTE | 2024-05-21 10:32 | NUR ---
DISCHARGE TEACHING COMPLETED. PATIENT VERBALIZED UNDERSTANDING. SELAM ESCORTING PATIENT TO VEHICLE AND PATIENT BEING TAKEN HOME BY SON. NO FURTHER NEEDS.
--- NOTE | 2024-05-21 10:56 | NUR ---
Reviewed all notes and assessments made by ANAMARIA Zuñiga. Agree with assessments.
--- NOTE | 2024-05-23 14:17 | NUR ---
cinder crew worker received a call from [facility] staff in pt's home reporting that they are with pt and cannot provide OT services and this is the main service pt needs. She reports pt has had [facility] in the past and would like to use them. SW advised she can send the referral to [facility], but is unsure if they will accept the orders as she discharged two days ago. RUTH advised the Home Health worker and pt to follow-up with her PCP to assist further. She reports pt has an appointment next week. RUTH faxed referral to [facility]. RUTH spoke with Norma who will call SW if they can accept or not.
--- NOTE | 2024-05-23 14:43 | NUR ---
lease out worker was informed Norma with [facility] they can accept pt and start her on Monday.
== END 2024-05-21 10:34 | disposition home health service (06) | DRG 947 ==
PROVIDERS: Physician Assistant; ADMIT Physical Medicine & Rehabilitation Sports Medicine
DX: R53.81 Other malaise (principal); A41.9 Sepsis, unspecified organism; R65.20 Severe sepsis without septic shock; J12.2 Parainfluenza virus pneumonia; M62.82 Rhabdomyolysis; N17.9 Acute kidney failure, unspecified; E87.20 Acidosis, unspecified; N39.0 Urinary tract infection, site not specified; E83.42 Hypomagnesemia; E83.39 Other disorders of phosphorus metabolism; E11.9 Type 2 diabetes mellitus without complications; R53.1 Weakness; R74.01 Elevation of levels of liver transaminase levels; Z87.11 Personal history of peptic ulcer disease; E78.5 Hyperlipidemia, unspecified; G25.81 Restless legs syndrome; W19.XXXD Unspecified fall, subsequent encounter; Z86.711 Personal history of pulmonary embolism; Z86.718 Personal history of other venous thrombosis and embolism; Z79.52 Long term (current) use of systemic steroids; Z79.899 Other long term (current) drug therapy; Z79.84 Long term (current) use of oral hypoglycemic drugs; Z96.651 Presence of right artificial knee joint; Z96.611 Presence of right artificial shoulder joint; Z90.89 Acquired absence of other organs; Z74.09 Other reduced mobility; R26.89 Other abnormalities of gait and mobility
CPT/HCPCS: J0692; J1650; J1815; J7512

== ENCOUNTER → 2024-07-16 | Outpatient (CLI) | payer MEDICARE | LOC: MC.RAD 10:37 | DX: Z12.31 Encounter for screening mammogram for malignant neoplasm of breast (principal) ==